=== PATIENT | female | born 1930 | race Caucasian/White ===

== ENCOUNTER 2018-04-16 10:12 | Day surgery (SDC) | payer MEDICARE ==
[~2018-04-16 10:12] MED LIST: CHONDR SU A NA/HYALUR INTRAOC KIT (SURGICARE) ONE; EPINEPHRINE INJ/PF 1 MG/1 ML AMPULE ONE; KETOROLAC TROMETHAMINE 0.45% 4 DROP/0.4 ML DROPERETTE OS PRN; LIDOCAINE 1% INJ-PF (10 MG/ML) 30 ML SDV ONE; TOBRAMYCIN SULFATE/DEXAMETH OPH OINTMENT 3.5 GM ONE
[2018-04-16] MEDS: TETRACAINE HCL 0.5% OPH SOLN 0.6 ML DROPERETTE OS PRN ×3 (11:21→11:47)
[2018-04-16] MEDS: CYCLOPENTOLATE 0.2%/PHENYLEPHRINE 1% OPH SOLN 2 ML OS PRN ×3 (11:22→11:41)
[2018-04-16] MEDS: TROPICAMIDE 1% OPH SOLN 3 ML OS PRN ×3 (11:22→11:41)
[2018-04-16] MEDS: BESIFLOXACIN HCL 0.6% OPH SUSP 5 ML BOTTLE OS PRN ×3 (11:22→12:11)
[2018-04-16] MEDS ORDERED: MIDAZOLAM 2 MG/2 ML INJ ONE (11:28)
[2018-04-16] MEDS ORDERED: LIDOCAINE 1%/PHENYLEPHRINE 1.5% 1 ML VIAL ONE (11:28)
[2018-04-16] MEDS ORDERED: FENTANYL CITRATE INJ/PF 100 MCG/2 ML AMPUL ONE (11:29)
== END 2018-04-16 13:37 | disposition home or self-care (01) ==
LOC: SC 10:12
PROVIDERS: ATTEND Ophthalmology
DX: H25.12 Age-related nuclear cataract, left eye (principal); E03.9 Hypothyroidism, unspecified; M19.90 Unspecified osteoarthritis, unspecified site; Z96.651 Presence of right artificial knee joint; Z79.899 Other long term (current) drug therapy; Z88.2 Allergy status to sulfonamides; Z88.5 Allergy status to narcotic agent
CPT/HCPCS: 66984; V2630; J2250; J3490 ×2; A9270; J0171; J3010; J2370; 142

== ENCOUNTER 2018-04-30 07:53 | Day surgery (SDC) | payer MEDICARE ==
[~2018-04-30 07:53] MED LIST changes: +KETOROLAC TROMETHAMINE 0.45% 4 DROP/0.4 ML DROPERETTE OD PRN; -KETOROLAC TROMETHAMINE 0.45% 4 DROP/0.4 ML DROPERETTE OS PRN; +MIDAZOLAM 2 MG/2 ML INJ ONE
[2018-04-30] MEDS: TROPICAMIDE 1% OPH SOLN 3 ML OD PRN ×3 (08:30→08:50)
[2018-04-30] MEDS: CYCLOPENTOLATE 0.2%/PHENYLEPHRINE 1% OPH SOLN 2 ML OD PRN ×3 (08:30→08:50)
[2018-04-30] MEDS: BESIFLOXACIN HCL 0.6% OPH SUSP 5 ML BOTTLE OD PRN ×3 (08:31→09:22)
[2018-04-30] MEDS: TETRACAINE HCL 0.5% OPH SOLN 0.6 ML DROPERETTE OD PRN ×3 (08:32→09:02)
== END 2018-04-30 10:30 | disposition home or self-care (01) ==
LOC: SC 07:53
PROVIDERS: ATTEND Ophthalmology
DX: H25.11 Age-related nuclear cataract, right eye (principal); Z98.42 Cataract extraction status, left eye; E03.9 Hypothyroidism, unspecified; M19.90 Unspecified osteoarthritis, unspecified site; Z79.899 Other long term (current) drug therapy; Z88.2 Allergy status to sulfonamides; Z88.5 Allergy status to narcotic agent
CPT/HCPCS: 66984; V2630; J2250; J3490 ×3; A9270; J0171; 142

== ENCOUNTER 2019-04-23 15:11 | Inpatient (IN) | payer MEDICARE ==
--- NOTE | 2019-04-23 15:41 | ER Document Report ---
ED General - General Chief Complaint: Fall Injury Stated Complaint: FALL/RIGHT KNEE PAIN Time Seen by Provider: 04/23/19 15:26 Mode of Arrival: Ambulatory Information source: Patient, Emergency Med Personnel, [facility] Records Notes: 89-year-old female with hypothyroidism, vertigo, acid reflux presents after a slip and fall that occurred at home just prior to arrival. Patient reports that she was being transferred from her walker to the chair when she fell landing on her right hip and injuring her right knee. Patient denies loss of consciousness but does admit to hitting her head. She denies being on any blood thinning medications. She denies any preceding chest pain, shortness of breath, palpitations or dizziness. TRAVEL OUTSIDE OF THE [place] IN LAST 30 DAYS: No - HPI Onset: Just prior to arrival Onset/Duration: Sudden Quality of pain: Throbbing Severity: Moderate Associated symptoms: Leg swelling. denies: Chest pain, Earache, Fever, Headache, Nausea, Vomiting, Shortness of breath Exacerbated by: Movement Relieved by: Remaining still Similar symptoms previously: No Recently seen / treated by doctor: No - Related Data Allergies/Adverse Reactions: codeine Allergy (Intermediate, Verified 04/30/18 08:55) ITCHING Sulfa (Sulfonamide Antibiotics) Allergy (Intermediate, Verified 04/30/18 08:55) ITCHING Past Medical History - General Information source: Patient, Relative, Emergency Med Personnel, [facility] Records - Social History Smoking Status: Never Smoker Frequency of alcohol use: None Drug Abuse: None Lives with: Family, Spouse/Significant other Family History: Reviewed & Not Pertinent Patient has suicidal ideation: No Patient has homicidal ideation: No - Past Medical History Cardiac Medical History: Denies: Hx Heart Attack, Hx Hypertension Pulmonary Medical History: Denies: Hx Asthma Neurological Medical History: Denies: Hx Cerebrovascular Accident, Hx Seizures GI Medical History: Denies: Hx Hepatitis, Hx Hiatal Hernia, Hx Ulcer Infectious Medical History: Denies: Hx Hepatitis Past Surgical History: Denies: Hx Mastectomy, Hx Open Heart Surgery, Hx Pacemaker Review of Systems - Review of Systems Notes: REVIEW OF SYSTEMS: CONSTITUTIONAL : Denies fever, chills, or sweats. Denies recent illness. Denies weight loss, recent hospitalizations. EENT: Denies visual changes, eye pain. Denies sore throat, oral lesions, difficulty swallowing. CARDIOVASCULAR: Denies chest pain. Denies palpitations. Denies lower extremity edema. RESPIRATORY: Denies cough. Denies shortness of breath, wheezing. GASTROINTESTINAL: Denies abdominal pain or distention. Denies nausea, vomiting, or diarrhea. Denies blood in vomitus, stools, or per rectum. Denies black, tarry stools. Denies constipation. GENITOURINARY: Denies difficulty urinating, painful urination, frequency, blood in urine, or vaginal discharge. MUSCULOSKELETAL: Denies back or neck pain or stiffness. SKIN: Denies rash, lesions or sores. HEMATOLOGIC : Denies easy bruising or bleeding. LYMPHATIC: Denies swollen glands. NEUROLOGICAL: Denies confusion or altered mental status. Denies loss of cons ciousness. Denies dizziness or lightheadedness. Denies headache. Denies weakness or paralysis. Denies problems difficulty with ambulation, slurred speech. Denies sensory loss, numbness, or tingling. Denies seizures. PSYCHIATRIC: Denies anxiety or stress. Denies depression, suicidal ideation, or homicidal ideation. Denies visual or auditory hallucinations. Physical Exam - Vital signs Vitals: Temp Pulse Resp BP Pulse Ox 97.8 F 62 16 164/69 H 94 04/23/19 15:22 04/23/19 15:22 04/23/19 15:22 04/23/19 15:22 04/23/19 15:22 - Notes Notes: PHYSICAL EXAMINATION: GENERAL: Well-appearing, well-nourished and in no acute distress. GCS 15 HEAD: Atraumatic, normocephalic. EYES: Pupils equal round and reactive to light, extraocular movements intact, sclera anicteric, conjunctiva are normal. ENT: Nares patent, oropharynx clear without exudates. Moist mucous membranes. No hemanotympanum . No blood in nares. No dental fracture NECK: Normal range of motion, supple without lymphadenopathy. Trachea midline LUNGS: Breath sounds clear to auscultation bilaterally and equal. No wheezes rales or rhonchi. HEART: Regular rate and rhythm without murmurs. Pulses intact all throughout. ABDOMEN: Soft, nontender, nondistended abdomen. No guarding, no rebound. No masses appreciated. Musculoskeletal: Normal range of motion of the upper extremities and left lower extremity. Right lower extremity internally rotated. Right knee swelling. DP, PT pulse intact. No pitting or edema. No cyanosis. NEUROLOGICAL: Cranial nerves grossly intact. Normal speech, normal gait. Normal sensory, motor, and reflex exams. PSYCH: Normal mood, normal affect. SKIN: Warm, No active bleeding U/S fast exam notes no obvious free fluid but this is a nondiagnostic evaluation Course - Re-evaluation Re-evalutation: Chest X-Ray 04/23/19 00:00 IMPRESSION: No definite acute cardiopulmonary process. Cervical Spine CT 04/23/19 15:32 IMPRESSION: CHRONIC DEGENERATIVE CHANGES. NO ACUTE FINDINGS. Femur X-Ray 04/23/19 15:32 IMPRESSION: Distal femoral fracture. Head CT 04/23/19 15:32 IMPRESSION: MILD CHRONIC CHANGES OF ATROPHY AND MICROVASCULAR ISCHEMIA. NO ACUTE PROCESS. EVIDENCE OF ACUTE STROKE: NO. Pelvis X-Ray 04/23/19 15:32 IMPRESSION: NEGATIVE STUDY OF THE PELVIS. Tibia/Fibula X-Ray 04/23/19 15:32 IMPRESSION: NEGATIVE STUDY OF THE RIGHT TIBIA AND FIBULA. NO RADIOGRAPHIC EVIDENCE OF ACUTE INJURY. Temp Pulse Resp BP Pulse Ox 97.8 F 62 16 164/69 H 94 04/23/19 15:22 04/23/19 15:22 04/23/19 15:22 04/23/19 15:22 04/23/19 15:22 Laboratory 04/23/19 04/23/19 04/23/19 17:22 17:22 17:22 WBC 11.8 H RBC 4.50 Hgb 12.5 Hct 38.1 MCV 85 MCH 27.9 MCHC 32.9 RDW 13.9 Plt Count 173 Total Counted 100 Seg Neutrophils % Not Reportable Seg Neuts % (Manual) 87 H Band Neutrophils % 5 Lymphocytes % Not Reportable Lymphocytes % (Manual) 6 L Monocytes % Not Reportable Monocytes % (Manual) 1 L Eosinophils % Not Reportable Eosinophils % (Manual) 1 Basophils % Not Reportable Basophils % (Manual) 0 Absolute Neutrophils Not Reportable Abs Neuts (Manual) 10.9 H Absolute Lymphocytes Not Reportable Abs Lymphs (Manual) 0.7 Absolute Monocytes Not Reportable Abs Monocytes (Manual) 0.1 Absolute Eosinophils Not Reportable Absolute Eos (Manual) 0.1 Absolute Basophils Not Reportable Abs Basophils (Manual) 0.0 Platelet Comment ADEQUATE Ovalocytes SLIGHT Stomatocytes SLIGHT PT 13.2 INR 1.00 APTT 27.9 Sodium 141.4 Potassium 5.1 H Chloride 108 H Carbon Dioxide 28 Anion Gap 5 BUN 32 H Creatinine 1.02 Est GFR ( Amer) > 60 Est GFR (Non-Af Amer) 51 L Glucose 125 H Calcium 9.4 Total Bilirubin 0.4 Direct Bilirubin 0.3 Neonat Total Bilirubin Not Reportable Neonat Direct Bilirubin Not Reportable Neonat Indirect Bili Not Reportable AST 29 ALT 26 Alkaline Phosphatase 73 Creatine Kinase CK-MB (CK-2) Troponin I Total Protein 6.3 Albumin 3.8 Blood Type Antibody Screen 04/23/19 04/23/19 04/23/19 17:22 17:22 17:22 WBC RBC Hgb Hct MCV MCH MCHC RDW Plt Count Total Counted Seg Neutrophils % Seg Neuts % (Manual) Band Neutrophils % Lymphocytes % Lymphocytes % (Manual) Monocytes % Monocytes % (Manual) Eosinophils % Eosinophils % (Manual) Basophils % Basophils % (Manual) Absolute Neutrophils Abs Neuts (Manual) Absolute Lymphocytes Abs Lymphs (Manual) Absolute Monocytes Abs Monocytes (Manual) Absolute Eosinophils Absolute Eos (Manual) Absolute Basophils Abs Basophils (Manual) Platelet Comment Ovalocytes Stomatocytes PT INR APTT Sodium Potassium Chloride Carbon Dioxide Anion Gap BUN Creatinine Est GFR ( Amer) Est GFR (Non-Af Amer) Glucose Calcium Total Bilirubin Direct Bilirubin Neonat Total Bilirubin Neonat Direct Bilirubin Neonat Indirect Bili AST ALT Alkaline Phosphatase Creatine Kinase 84 CK-MB (CK-2) Troponin I < 0.012 Total Protein Albumin Blood Type O POSITIVE Antibody Screen NEGATIVE 04/23/19 17:22 WBC RBC Hgb Hct MCV MCH MCHC RDW Plt Count Total Counted Seg Neutrophils % Seg Neuts % (Manual) Band Neutrophils % Lymphocytes % Lymphocytes % (Manual) Monocytes % Monocytes % (Manual) Eosinophils % Eosinophils % (Manual) Basophils % Basophils % (Manual) Absolute Neutrophils Abs Neuts (Manual) Absolute Lymphocytes Abs Lymphs (Manual) Absolute Monocytes Abs Monocytes (Manual) Absolute Eosinophils Absolute Eos (Manual) Absolute Basophils Abs Basophils (Manual) Platelet Comment Ovalocytes Stomatocytes PT INR APTT Sodium Potassium Chloride Carbon Dioxide Anion Gap BUN Creatinine Est GFR ( Amer) Est GFR (Non-Af Amer) Glucose Calcium Total Bilirubin Direct Bilirubin Neonat Total Bilirubin Neonat Direct Bilirubin Neonat Indirect Bili AST ALT Alkaline Phosphatase Creatine Kinase CK-MB (CK-2) 1.51 Troponin I Cancelled Total Protein Albumin Blood Type Antibody Screen 04/23/19 15:41 89-year-old female presents after a fall at home which caused her to land on her right hip. This fall occurred during transfer from her walker to the chair. Patient denies any preceding chest pain, dizziness, shortness of breath. States that her was attempting to help her. She does use a walker constantly at baseline. Exam is significant for internal rotation of the right lower extremity associated right knee swelling and ecchymosis and pain with palpation to the right trochanter. 04/23/19 17:00 Dr. Francisco consulted for distal femur fracture. Family at bedside and aware of patient's fracture. Patient resting comfortably. Dr. Francisco requesting repeat films centered more on fracture area. Due to the patient's extreme discomfort, and ability to move independently and her injury a CT of the femur was obtained. 04/23/19 20:48 Dr. Zheng contacted for admission to the hospital. Patient has been accepted by the hospitalist for admission. Dr. Francisco to see the patient in the morning. Family at bedside and agreeable with admission. - Vital Signs Vital signs: Temp Pulse Resp BP Pulse Ox 97.9 F 80 14 124/56 L 96 04/23/19 18:44 04/23/19 20:46 04/23/19 20:46 04/23/19 20:46 04/23/19 20:46 - Laboratory Result Diagrams: 04/23/19 17:22 04/23/19 17:22 Laboratory results interpreted by me: 04/23/19 04/23/19 17:22 17:22 WBC 11.8 H Seg Neuts % (Manual) 87 H Lymphocytes % (Manual) 6 L Monocytes % (Manual) 1 L Abs Neuts (Manual) 10.9 H Potassium 5.1 H Chloride 108 H BUN 32 H Est GFR (Non-Af Amer) 51 L Glucose 125 H - Diagnostic Test Radiology reviewed: Image reviewed, Reports reviewed - EKG Interpretation by Me Rate: Normal - Q waves in leads III and aVF, V1 and V2 Rhythm: Other Discharge - Discharge Clinical Impression: Closed fracture of right distal femur Qualifiers: Encounter type: initial encounter Fracture morphology: unspecified fracture morphology Qualified Code(s): S72.401A - Unspecified fracture of lower end of right femur, initial encounter for closed fracture Hypothyroidism Qualifiers: Hypothyroidism type: unspecified Qualified Code(s): E03.9 - Hypothyroidism, unspecified Fall Qualifiers: Encounter type: initial encounter Qualified Code(s): W19.XXXA - Unspecified fall, initial encounter Condition: Good Disposition: ADMITTED INPATIENT Admitting Provider: Marce (Hospitalist) Unit Admitted: [facility]
[2019-04-23] MEDS ORDERED: FENTANYL CITRATE INJ/PF 100 MCG/2 ML AMPUL IV ONE (15:56)
--- NOTE | 2019-04-23 16:32 | RADIOLOGY REPORT (SQ) ---
EXAM DESCRIPTION: CT HEAD WITHOUT COMPLETED DATE/TIME: 04/23/2019 4:22 pm REASON FOR STUDY: fall COMPARISON: None. TECHNIQUE: Axial images acquired through the brain without intravenous contrast. Images reviewed wi th bone, brain and subdural windows. Additional sagittal and coronal reconstructions were generated. Images stored on PACS. All CT scanners at this facility use dose modulation, iterative reconstruction, and/or weight based d osing when appropriate to reduce radiation dose to as low as reasonably achievable (ALARA). [facility]: Dose Right [facility]: CareDose [facility]: Dose Right [facility]: Teradose 4D [facility]: [employer] RADIATION DOSE: CT Rad equipment meets quality standard of care and radiation dose reduction techniq ues were employed. CTDIvol: 23.1 - 53.2 mGy. DLP: 1503 mGy-cm. mGy. LIMITATIONS: None. FINDINGS: VENTRICLES: Prominent. CEREBRUM: No masses. No hemorrhage. No midline shift. Areas of low density in the white matter mos t likely due to chronic micro-vascular ischemic change. No evidence for acute infarction. CEREBELLUM: No masses. No hemorrhage. No alteration of density. No evidence for acute infarction. EXTRAAXIAL SPACES: Mild age-related involutional change. No fluid collections. No masses. ORBITS AND GLOBE: No intra- or extraconal masses. Normal contour of globe without masses. CALVARIUM: No fracture. PARANASAL SINUSES: No fluid or mucosal thickening. SOFT TISSUES: No mass or hematoma. OTHER: No other significant finding. IMPRESSION: MILD CHRONIC CHANGES OF ATROPHY AND MICROVASCULAR ISCHEMIA. NO ACUTE PROCESS. EVIDENCE OF ACUTE STROKE: NO. TECHNICAL DOCUMENTATION: JOB ID: [id number] Quality ID # [id number]: Final reports with documentation of one or more dose reduction techniques (e.g., Au tomated exposure control, adjustment of the mA and/or kV according to patient size, use of iterative reconstruction technique) 2010 [employer]- All Rights Reserved Reading location - IP/workstation name: [email or web address]
--- NOTE | 2019-04-23 16:34 | RADIOLOGY REPORT (SQ) ---
EXAM DESCRIPTION: CT CERVICAL SPINE WITHOUT COMPLETED DATE/TIME: 04/23/2019 4:22 pm REASON FOR STUDY: fall COMPARISON: None. TECHNIQUE: Axial images acquired through the cervical spine without intravenous contrast. Images re viewed with lung, soft tissue and bone windows. Reconstructed coronal and sagittal MPR images review ed. Images stored on PACS. All CT scanners at this facility use dose modulation, iterative reconstruction, and/or weight based d osing when appropriate to reduce radiation dose to as low as reasonably achievable (ALARA). [facility]: Dose Right [facility]: CareDose [facility]: Dose Right [facility]: Teradose 4D [facility]: [employer] RADIATION DOSE: CT Rad equipment meets quality standard of care and radiation dose reduction techniq ues were employed. CTDIvol: 16.7 mGy. DLP: 263 mGy-cm. mGy. LIMITATIONS: None. FINDINGS: ALIGNMENT: Anatomic. MINERALIZATION: Normal. VERTEBRAL BODIES: No fractures or dislocation. DISCS: Multilevel disc space narrowing with osteophytes. FACETS, LATERAL MASSES, POSTERIOR ELEMENTS: Facet arthropathy. No fractures. No dislocation. No ac fabian findings. HARDWARE: None in the spine. VISUALIZED RIBS: No fractures. LUNG APICES AND SOFT TISSUES: No significant or acute findings. OTHER: No other significant finding. IMPRESSION: CHRONIC DEGENERATIVE CHANGES. NO ACUTE FINDINGS. TECHNICAL DOCUMENTATION: JOB ID: [id number] Quality ID # [id number]: Final reports with documentation of one or more dose reduction techniques (e.g., Au tomated exposure control, adjustment of the mA and/or kV according to patient size, use of iterative reconstruction technique) 2010 [employer]- All Rights Reserved Reading location - IP/workstation name: [email or web address]
--- NOTE | 2019-04-23 16:50 | RADIOLOGY REPORT (SQ) ---
EXAM DESCRIPTION: PELVIS AP COMPLETED DATE/TIME: 04/23/2019 4:41 pm REASON FOR STUDY: fall COMPARISON: None. NUMBER OF VIEWS: One view TECHNIQUE: AP Pelvis LIMITATIONS: None. FINDINGS: MINERALIZATION: Normal. HIPS: No acute fracture or dislocation. No worrisome bone lesions. PELVIS AND SACRUM: No acute fracture or dislocation. No worrisome bone lesions. PUBIS AND ISCHIUM: No acute fracture. LOWER LUMBAR SPINE: No significant findings as visualized. SOFT TISSUES: No findings. OTHER: No other significant finding. IMPRESSION: NEGATIVE STUDY OF THE PELVIS. COMMENT: Pelvic fractures are often occult on plain radiographs. If strong clinical suspicion for f racture, recommend CT or MR. TECHNICAL DOCUMENTATION: JOB ID: [id number] [employer]- All Rights Reserved Reading location - IP/workstation name: [email or web address]
--- NOTE | 2019-04-23 16:51 | RADIOLOGY REPORT (SQ) ---
EXAM DESCRIPTION: CHEST SINGLE VIEW COMPLETED DATE/TIME: 04/23/2019 4:41 pm REASON FOR STUDY: PRE-OP COMPARISON: None. EXAM PARAMETERS: NUMBER OF VIEWS: One view. TECHNIQUE: Single frontal radiographic view of the chest acquired. RADIATION DOSE: NA LIMITATIONS: Patient rotation. FINDINGS: LUNGS AND PLEURA: No opacities, masses or pneumothorax. No pleural effusion. MEDIASTINUM AND HILAR STRUCTURES: No discrete masses. Widened superiorly, likely related to patient rotation. Likely calcified mediastinal and hilar nodes. HEART AND VASCULAR STRUCTURES: Borderline enlarged cardiac silhouette. Unfolded atherosclerotic thor acic aorta. BONES: No acute findings. Thoracolumbar spondylosis. Bone anchors in the left humerus. HARDWARE: None in the chest. OTHER: No other significant finding. IMPRESSION: No definite acute cardiopulmonary process. TECHNICAL DOCUMENTATION: JOB ID: [id number] [employer]- All Rights Reserved Reading location - IP/workstation name: [email or web address]
--- NOTE | 2019-04-23 16:51 | RADIOLOGY REPORT (SQ) ---
EXAM DESCRIPTION: TIBIA FIBULA RIGHT COMPLETED DATE/TIME: 04/23/2019 4:41 pm REASON FOR STUDY: fall COMPARISON: None. NUMBER OF VIEWS: Two views. TECHNIQUE: Two radiographic images acquired of the right tibia and fibula to include the knee and an kle in at least one projection. LIMITATIONS: None. FINDINGS: MINERALIZATION: Normal. BONES: No acute fracture or dislocation. No worrisome bone lesions. SOFT TISSUES: No obvious swelling or foreign body. OTHER: No other significant finding. IMPRESSION: NEGATIVE STUDY OF THE RIGHT TIBIA AND FIBULA. NO RADIOGRAPHIC EVIDENCE OF ACUTE INJURY. TECHNICAL DOCUMENTATION: JOB ID: [id number] [employer]- All Rights Reserved Reading location - IP/workstation name: [email or web address]
--- NOTE | 2019-04-23 16:54 | RADIOLOGY REPORT (SQ) ---
EXAM DESCRIPTION: FEMUR RIGHT COMPLETED DATE/TIME: 04/23/2019 4:41 pm REASON FOR STUDY: fall COMPARISON: None. NUMBER OF VIEWS: Two views. TECHNIQUE: Two radiographic images acquired of the right femur to include hip and knee in at least o ne projection. LIMITATIONS: None. FINDINGS: MINERALIZATION: Normal. BONES: There is no oblique fracture of the distal femur. SOFT TISSUES: No obvious swelling or foreign body. OTHER: No other significant finding. IMPRESSION: Distal femoral fracture. TECHNICAL DOCUMENTATION: JOB ID: [id number] [employer]- All Rights Reserved Reading location - IP/workstation name: [email or web address]
[2019-04-23 17:41] LABS: PARTIAL THROMBOPLASTIN TIME 27.9 SEC (23.5-35.8); PROTHROMBIN TIME 13.2 SEC (11.4-15.4)
[2019-04-23 17:46] LABS: HEMATOCRIT 38.1 % (36.0-47.0); HEMOGLOBIN 12.5 g/dL (12.0-15.5); MEAN CORPUSCULAR HEMOGLOBIN 27.9 pg (27.0-33.4); MEAN CORPUSCULAR HGB CONC 32.9 g/dL (32.0-36.0); MEAN CORPUSCULAR VOLUME 85 fl (80-97); PLATELET COUNT 173 10^3/uL (150-450); RED CELL DISTRIBUTION WIDTH 13.9 % (11.5-14.0); WHITE BLOOD COUNT 11.8 10^3/uL (4.0-10.5)
[2019-04-23 17:54] LABS: ALANINE AMINOTRANSFERASE 26 U/L (9-52); ALBUMIN 3.8 g/dL (3.5-5.0); ALKALINE PHOSPHATASE 73 U/L (38-126); ANION GAP 5 (5-19); ASPARTATE AMINO TRANSFERASE 29 U/L (14-36); BILIRUBIN,DIRECT 0.3 mg/dL (0.0-0.4); BILIRUBIN,TOTAL 0.4 mg/dL (0.2-1.3); BLOOD UREA NITROGEN 32 mg/dL (7-20); CALCIUM 9.4 mg/dL (8.4-10.2); CARBON DIOXIDE 28 mmol/L (22-30); CHLORIDE 108 mmol/L (98-107); GLUCOSE 125 mg/dL (75-110); POTASSIUM 5.1 mmol/L (3.6-5.0); TOTAL PROTEIN 6.3 g/dL (6.3-8.2)
[2019-04-23] MEDS ORDERED: ONDANSETRON HCL INJ/PF 4 MG/2 ML SDV IV PRN (18:06)
[2019-04-23] MEDS ORDERED: MORPHINE SULFATE 10 MG/ML INJ IV PRN (18:11)
[2019-04-23 18:15] LABS: ABSOLUTE LYMPHOCYTES# (MANUAL) 0.7 10^3/uL (0.5-4.7); ABSOLUTE MONOCYTES # (MANUAL) 0.1 10^3/uL (0.1-1.4); BAND NEUTROPHILS % (MANUAL) 5 % (3-5); BASOPHILS % (MANUAL) 0 % (0-2); EOSINOPHILS % (MANUAL) 1 % (0-6); LYMPHOCYTES % (MANUAL) 6 % (13-45); MONOCYTES % (MANUAL) 1 % (3-13); PLATELET COMMENT ADEQUATE; SEGMENTED NEUTROPHILS % (MAN) 87 % (42-78); TOTAL CELLS COUNTED 100
[2019-04-23 18:16] LABS: OVALOCYTES SLIGHT; STOMATOCYTES SLIGHT
--- NOTE | 2019-04-23 18:19 | RADIOLOGY REPORT (SQ) ---
EXAM DESCRIPTION: CT LT LOWER EXTREMITY WITHOUT COMPLETED DATE/TIME: 04/23/2019 6:09 pm REASON FOR STUDY: distal femor fracture COMPARISON: Left femur TECHNIQUE: Axial imaging performed through the left femur with reformatted coronal and sagittal imag ing windowed for bone and soft tissues. Images saved to PACS. 3D IMAGING: Were 3D images as MIP, SSD, or volume rendering performed at the work station? No All CT scanners at this facility use dose modulation, iterative reconstruction, and/or weight based d osing when appropriate to reduce radiation dose to as low as reasonably achievable (ALARA). [facility]: Dose Right [facility]: CareDose [facility]: Dose Right [facility]: Teradose 4D [facility]: [employer] LIMITATIONS: None. RADIATION DOSE: CT Rad equipment meets quality standard of care and radiation dose reduction techniq ues were employed. CTDIvol: 5.8 mGy. DLP: 282 mGy-cm. mGy. FINDINGS: SOFT TISSUES: No obvious swelling or foreign body. BONES: Spiral fracture of the mid to distal femur with distraction and overlap. There is an addition al isolated fracture of the anterior distal femoral cortex superior to the prosthesis. MINERALIZATION: Normal. OTHER: No other significant finding. IMPRESSION: Spiral fracture of the femur with distraction and overlap. Isolated nondisplaced anteri or distal femoral cortical fracture superior to the prosthesis. TECHNICAL DOCUMENTATION: JOB ID: [id number] Quality ID # [id number]: Final reports with documentation of one or more dose reduction techniques (e.g., Au tomated exposure control, adjustment of the mA and/or kV according to patient size, use of iterative reconstruction technique) 2010 [employer]- All Rights Reserved Reading location - IP/workstation name: [email or web address]
--- NOTE | 2019-04-23 18:23 | PDOC H&P ---
History of Present Illness Admission Date/PCP: ANA FRIEDMAN NP Patient complains of: Fall with right femur fracture History of Present Illness: MICHAEL ROY is a 89 year old female female with history of hypothyroidism, mild chronic kidney disease, vertigo came to the emergency room after a fall at home. It was accidental fall. The work-up shows right femoral fracture. Dr. Mckayla Reece spoke to the orthopedist and Dr. Francisco and he agreed to see the patient first thing in the morning. Spoke to the patient's for at least half an hour he wants everything to be done and he wants her to be full code. Past Medical History Cardiac Medical History: Denies: Myocardial Infarction, Hypertension Pulmonary Medical History: Denies: Asthma Neurological Medical History: Denies: Seizures GI Medical History: Denies: Hepatitis, Hiatal Hernia Hematology: Reports: Anemia - IRON INFUSIONS/D/C'D Denies: Sickle Cell Disease Past Surgical History Past Surgical History: Reports: Knee Replacement, Orthopedic Surgery Denies: Amputation, Mastectomy, Pacemaker Social History Lives with: Family, Spouse/Significant other Smoking Status: Never Smoker Frequency of Alcohol Use: None Hx Recreational Drug Use: No Hx Prescription Drug Abuse: No - Advance Directive Resuscitation Status: Full Code Family History Family History: Reviewed & Not Pertinent Parental Family History Reviewed: Yes - Family history of hypertension Children Family History Reviewed: Yes Sibling(s) Family History Reviewed.: Yes Medication/Allergy Home Medications: Gabapentin 100 mg PO BID 04/09/18 Levothyroxine Sodium [Synthroid 0.075 mg Tablet] 0.075 mg PO DAILY 04/09/18 Fesoterodine Fumarate [Toviaz] PO DAILY 04/23/19 Linaclotide [Linzess] PO DAILY 04/23/19 Allergies/Adverse Reactions: codeine Allergy (Intermediate, Verified 04/30/18 08:55) ITCHING Sulfa (Sulfonamide Antibiotics) Allergy (Intermediate, Verified 04/30/18 08:55) ITCHING Review of Systems Constitutional: ABSENT: fatigue, fever(s), headache(s), night sweats, weakness Ears: ABSENT: hearing changes Nose, Mouth, and Throat: ABSENT: sore throat Cardiovascular: ABSENT: edema, orthropnea, palpitations Gastrointestinal: ABSENT: abdominal pain, bloating, diarrhea, dysphagia, heartburn, melena, nausea Musculoskeletal: PRESENT: other - c/o of pain in the right upper leg. Neurological: ABSENT: abnormal gait, abnormal speech, confusion, dizziness, focal weakness, syncope Psychiatric: ABSENT: anxiety, depression, homidical ideation, suicidal ideation Physical Exam Vital Signs: Temp Pulse Resp BP Pulse Ox 97.8 F 62 16 164/69 H 94 04/23/19 15:22 04/23/19 15:22 04/23/19 15:22 04/23/19 15:22 04/23/19 15:22 Intake & Output 04/22/19 04/23/19 04/24/19 06:59 06:59 06:59 Weight 63 kg General appearance: PRESENT: cooperative, other - Patient is in moderate distress. Head exam: PRESENT: atraumatic Eye exam: PRESENT: PERRLA Mouth exam: PRESENT: moist, tongue midline Teeth exam: PRESENT: poor dentation Neck exam: ABSENT: carotid bruit, JVD, lymphadenopathy, thyromegaly Respiratory exam: PRESENT: clear to auscultation terrence. ABSENT: rales, rhonchi, wheezes Cardiovascular exam: PRESENT: RRR. ABSENT: diastolic murmur, rubs, systolic mur mur GI/Abdominal exam: PRESENT: normal bowel sounds, soft. ABSENT: distended, guarding, mass, organolmegaly, rebound, tenderness Rectal exam: PRESENT: deferred Extremities exam: PRESENT: other - Right leg was shortened compared to the left leg. Neurological exam: PRESENT: alert, awake, oriented to person, oriented to place, oriented to time, oriented to situation, CN II-XII grossly intact. ABSENT: motor sensory deficit Psychiatric exam: PRESENT: appropriate affect, normal mood. ABSENT: homicidal ideation, suicidal ideation Results Laboratory Results: 04/23/19 17:22 04/23/19 17:22 04/23/19 04/23/19 17:22 17:22 WBC 11.8 H RBC 4.50 Hgb 12.5 Hct 38.1 MCV 85 MCH 27.9 MCHC 32.9 RDW 13.9 Plt Count 173 Seg Neutrophils % Not Reportable Lymphocytes % Not Reportable Monocytes % Not Reportable Eosinophils % Not Reportable Basophils % Not Reportable Absolute Neutrophils Not Reportable Absolute Lymphocytes Not Reportable Absolute Monocytes Not Reportable Absolute Eosinophils Not Reportable Absolute Basophils Not Reportable Sodium 141.4 Potassium 5.1 H Chloride 108 H Carbon Dioxide 28 Anion Gap 5 BUN 32 H Creatinine 1.02 Est GFR ( Amer) > 60 Est GFR (Non-Af Amer) 51 L Glucose 125 H Calcium 9.4 Total Bilirubin 0.4 AST 29 ALT 26 Alkaline Phosphatase 73 Total Protein 6.3 Albumin 3.8 04/23/19 17:22 Troponin I < 0.012 Impressions: Chest X-Ray 04/23/19 00:00 IMPRESSION: No definite acute cardiopulmonary process. Cervical Spine CT 04/23/19 15:32 IMPRESSION: CHRONIC DEGENERATIVE CHANGES. NO ACUTE FINDINGS. Femur X-Ray 04/23/19 15:32 IMPRESSION: Distal femoral fracture. Head CT 04/23/19 15:32 IMPRESSION: MILD CHRONIC CHANGES OF ATROPHY AND MICROVASCULAR ISCHEMIA. NO ACUTE PROCESS. EVIDENCE OF ACUTE STROKE: NO. Pelvis X-Ray 04/23/19 15:32 IMPRESSION: NEGATIVE STUDY OF THE PELVIS. Tibia/Fibula X-Ray 04/23/19 15:32 IMPRESSION: NEGATIVE STUDY OF THE RIGHT TIBIA AND FIBULA. NO RADIOGRAPHIC EVIDENCE OF ACUTE INJURY. Assessment and Plan - Diagnosis (1) Closed fracture of right distal femur Is this a current diagnosis for this admission?: Yes Plan: [birth year]/[id number]-ncpa-old female came to the emergency room with history of fall. Found to have a right distal femoral fracture. Orthopedics was consulted by the ER and Dr. Francisco is going to see the patient tomorrow. Plan is going to be appears to put her in IMCU. As inpatient. Keep her n.p.o. from midnight. Started on IV fluids normal saline at 75 cc/h. Aspiration fall seizure precautions are requested. Ca's catheter was placed. OT consult PT consult psychiatric social worker consult was requested for placement. No Lovenox was initiated because of the possible surgery early in the morning. GI prophylaxis was initiated. Patient is going to be full code. EKG was nonspecific findings. Hemoglobin and renal function is normal. Patient because of the age moderate to high risk for surgery in my opinion. (2) Hypothyroidism Is this a current diagnosis for this admission?: No Plan: 04/23/2019-patient has history of hypothyroidism going to check the TSH levels and hold levothyroxine for now once the surgery was done we are going to restart p.o. medications after cleared by the orthopedic since. - Time Time Spent with patient: 25-34 minutes Medications reviewed and adjusted accordingly: Yes Anticipated discharge: SNF
[2019-04-23 19:41] LABS: APPEARANCE,URINE CLOUDY; BILIRUBIN,URINE NEGATIVE (NEGATIVE); GLUCOSE, URINE NEGATIVE (NEGATIVE); KETONES,URINE TRACE mg/dL (NEGATIVE); LEUKOCYTE ESTERASE,URINE TRACE (NEGATIVE); NITRITE,URINE POSITIVE (NEGATIVE); PROTEIN,URINE NEGATIVE (NEGATIVE); URINE SPECIFIC GRAVITY 1.021; UROBILINOGEN,URINE NEGATIVE mg/dL (<2.0)
[2019-04-23 19:42] LABS: COLOR,URINE YELLOW
[2019-04-23] MEDS: NORMAL SALINE 1000 ML 1,000 ML IV PRN (20:13)
[2019-04-23] MEDS: ACETAMINOPHEN 325 MG TABLET PO PRN (20:15)
--- NOTE | 2019-04-23 20:33 | EKG REPORT ---
SEVERITY:- ABNORMAL ECG - UNKNOWN RHYTHM, IRREGULAR RATE 52-77 PROBABLE INFERIOR INFARCT, AGE INDETERMINATE CONSIDER ANTEROSEPTAL INFARCT : Confirmed by: Castro Marsh 23-Apr-2019 20:32:06
[2019-04-23] MEDS: MORPHINE SULFATE 10 MG/ML INJ IV PRN (20:50)
[2019-04-23] MEDS: PANTOPRAZOLE SODIUM 40 MG VIAL IV SCH (22:16)
[2019-04-24 00:54] LABS: CREATINE KINASE MB 3.41 ng/mL (<4.55)
[2019-04-24 00:57] LABS: TROPONIN I < 0.012 ng/mL
[2019-04-24] MEDS: MORPHINE SULFATE 10 MG/ML INJ IV PRN ×2 (03:29→23:22)
[2019-04-24 06:47] LABS: ABSOLUTE LYMPHOCYTES (AUTO) 0.9 10^3/uL (0.5-4.7); ABSOLUTE MONOCYTES (AUTO) 0.8 10^3/uL (0.1-1.4); ABSOLUTE NEUT (AUTO) 8.5 10^3/uL (1.7-8.2); BASOPHILS % (AUTO) 0.4 % (0-2); HEMATOCRIT 32.4 % (36.0-47.0); HEMOGLOBIN 10.6 g/dL (12.0-15.5); LYMPHOCYTES % (AUTO) 8.4 % (13-45); MEAN CORPUSCULAR HGB CONC 32.8 g/dL (32.0-36.0); MEAN CORPUSCULAR VOLUME 85 fl (80-97); MONOCYTES % (AUTO) 7.8 % (3-13); PLATELET COUNT 161 10^3/uL (150-450); RED BLOOD COUNT 3.81 10^6/uL (3.72-5.28); RED CELL DISTRIBUTION WIDTH 13.9 % (11.5-14.0); SEGMENTED NEUTROPHILS % (AUTO) 83.4 % (42-78); TOTAL CELLS COUNTED % (AUTO) 100 %; WHITE BLOOD COUNT 10.2 10^3/uL (4.0-10.5)
[2019-04-24 07:23] LABS: CREATINE KINASE MB 8.27 ng/mL (<4.55); NT PRO BNP 567 pg/mL (<450)
[2019-04-24 07:32] LABS: TROPONIN I < 0.012 ng/mL
[2019-04-24] MEDS ORDERED: NORMAL SALINE 250 ML IV PRN ×2 (08:18)
[2019-04-24] MEDS: NORMAL SALINE 1000 ML 1,000 ML IV PRN ×2 (08:28→20:17)
[2019-04-24] MEDS: ACETAMINOPHEN 325 MG TABLET PO PRN (08:29)
[2019-04-24] MEDS ORDERED: SODIUM POLYSTYRENE SULFONATE 15 GM/60 ML PR ONE (08:30)
--- NOTE | 2019-04-24 08:33 | PDOC PROGRESS REPORT ---
Subjective Progress Note for:: 04/24/19 Subjective:: 89 year old female female with history of hypothyroidism, mild chronic kidney disease, vertigo came to the emergency room after a fall at home. It was accidental fall. The work-up shows right femoral fracture. Dr. Mckayla Reece spoke to the orthopedist and Dr. Francisco and he agreed to see the patient first thing in the morning. Spoke to the patient's for at least half an hour he wants everything to be done and he wants her to be full code. 04/[id number]-shmf-old female admitted with history of fall found to have a right distal femur fracture. Hemoglobin dropped to 10.6. The nurse called me to notify that potassium is 6.7 this morning be going to repeat the CMP today. Echocardiogram was requested as per the orthopedic team request. Type and sc reen was also requested to be controlled 2 units of blood transfusion in case if needed postop basis. PT OT consult was requested social science research assistant consult was requested for placement. Reason For Visit: RT FEMORAL FRACTURE Physical Exam Vital Signs: Temp Pulse Resp BP Pulse Ox 98.2 F 74 16 104/45 L 93 04/24/19 07:53 04/24/19 07:53 04/24/19 07:53 04/24/19 07:53 04/24/19 07:53 Intake & Output 04/23/19 04/24/19 04/25/19 06:59 06:59 06:59 Intake Total 30 Output Total 200 Balance -170 Weight 62.2 kg General appearance: PRESENT: cooperative, mild distress Head exam: PRESENT: atraumatic Eye exam: PRESENT: PERRLA Mouth exam: PRESENT: moist, tongue midline Teeth exam: PRESENT: poor dentation Neck exam: ABSENT: carotid bruit, JVD, lymphadenopathy, thyromegaly Respiratory exam: PRESENT: clear to auscultation terrence. ABSENT: rales, rhonchi, wheezes Pulses: PRESENT: normal dorsalis pedis pul GI/Abdominal exam: PRESENT: normal bowel sounds, soft. ABSENT: distended, guarding, mass, organolmegaly, rebound, tenderness Rectal exam: PRESENT: deferred Gentrourinary exam: PRESENT: indwelling catheter Extremities exam: PRESENT: other Neurological exam: PRESENT: alert, awake, oriented to person, oriented to place, oriented to time, oriented to situation, CN II-XII grossly intact. ABSENT: motor sensory deficit Skin exam: PRESENT: dry, intact, warm. ABSENT: cyanosis, rash Results Laboratory Results: 04/24/19 06:32 04/24/19 06:32 04/23/19 04/23/19 04/23/19 17:22 17:22 17:22 WBC 11.8 H RBC 4.50 Hgb 12.5 Hct 38.1 MCV 85 MCH 27.9 MCHC 32.9 RDW 13.9 Plt Count 173 Seg Neutrophils % Not Reportable Lymphocytes % Not Reportable Monocytes % Not Reportable Eosinophils % Not Reportable Basophils % Not Reportable Absolute Neutrophils Not Reportable Absolute Lymphocytes Not Reportable Absolute Monocytes Not Reportable Absolute Eosinophils Not Reportable Absolute Basophils Not Reportable Sodium 141.4 Potassium 5.1 H Chloride 108 H Carbon Dioxide 28 Anion Gap 5 BUN 32 H Creatinine 1.02 Est GFR ( Amer) > 60 Est GFR (Non-Af Amer) 51 L Glucose 125 H Calcium 9.4 Magnesium Total Bilirubin 0.4 AST 29 ALT 26 Alkaline Phosphatase 73 Total Protein 6.3 Albumin 3.8 Triglycerides Cholesterol LDL Cholesterol Direct VLDL Cholesterol HDL Cholesterol TSH Urine Color Urine Appearance Urine pH Ur Specific [place] Urine Protein Urine Glucose (UA) Urine Ketones Urine Blood Urine Nitrite Ur Leukocyte Esterase Urine WBC (Auto) Urine RBC (Auto) Blood Type O POSITIVE Antibody Screen NEGATIVE 04/23/19 04/24/19 04/24/19 18:40 06:32 06:32 WBC 10.2 RBC 3.81 Hgb 10.6 L Hct 32.4 L MCV 85 MCH 28.0 MCHC 32.8 RDW 13.9 Plt Count 161 Seg Neutrophils % 83.4 H Lymphocytes % 8.4 L Monocytes % 7.8 Eosinophils % 0.0 Basophils % 0.4 Absolute Neutrophils 8.5 H Absolute Lymphocytes 0.9 Absolute Monocytes 0.8 Absolute Eosinophils 0.0 Absolute Basophils 0.0 Sodium Cancelled Potassium Cancelled Chloride Cancelled Carbon Dioxide Cancelled Anion Gap Cancelled BUN Cancelled Creatinine Cancelled Est GFR ( Amer) Cancelled Est GFR (Non-Af Amer) Cancelled Glucose Cancelled Calcium Cancelled Magnesium Cancelled Total Bilirubin Cancelled AST Cancelled ALT Cancelled Alkaline Phosphatase Cancelled Total Protein Cancelled Albumin Cancelled Triglycerides Cancelled Cholesterol Cancelled LDL Cholesterol Direct Cancelled VLDL Cholesterol Cancelled HDL Cholesterol Cancelled TSH Urine Color YELLOW Urine Appearance CLOUDY Urine pH 7.0 Ur Specific [place] 1.021 Urine Protein NEGATIVE Urine Glucose (UA) NEGATIVE Urine Ketones TRACE H Urine Blood NEGATIVE Urine Nitrite POSITIVE H Ur Leukocyte Esterase TRACE H Urine WBC (Auto) 6 Urine RBC (Auto) 1 Blood Type Antibody Screen 04/24/19 06:32 WBC RBC Hgb Hct MCV MCH MCHC RDW Plt Count Seg Neutrophils % Lymphocytes % Monocytes % Eosinophils % Basophils % Absolute Neutrophils Absolute Lymphocytes Absolute Monocytes Absolute Eosinophils Absolute Basophils Sodium Potassium Chloride Carbon Dioxide Anion Gap BUN Creatinine Est GFR ( Amer) Est GFR (Non-Af Amer) Glucose Calcium Magnesium Total Bilirubin AST ALT Alkaline Phosphatase Total Protein Albumin Triglycerides Cholesterol LDL Cholesterol Direct VLDL Cholesterol HDL Cholesterol TSH 1.12 Urine Color Urine Appearance Urine pH Ur Specific [place] Urine Protein Urine Glucose (UA) Urine Ketones Urine Blood Urine Nitrite Ur Leukocyte Esterase Urine WBC (Auto) Urine RBC (Auto) Blood Type Antibody Screen 04/23/19 04/23/19 04/23/19 17:22 17:22 17:22 Creatine Kinase 84 CK-MB (CK-2) 1.51 Troponin I < 0.012 Cancelled NT-Pro-B Natriuret Pep 04/24/19 04/24/19 04/24/19 00:19 00:19 06:32 Creatine Kinase 160 H Cancelled CK-MB (CK-2) 3.41 Troponin I < 0.012 NT-Pro-B Natriuret Pep 04/24/19 06:32 Creatine Kinase CK-MB (CK-2) 8.27 H Troponin I < 0.012 NT-Pro-B Natriuret Pep 567 H Impressions: Chest X-Ray 04/23/19 00:00 IMPRESSION: No definite acute cardiopulmonary process. Cervical Spine CT 04/23/19 15:32 IMPRESSION: CHRONIC DEGENERATIVE CHANGES. NO ACUTE FINDINGS. Femur X-Ray 04/23/19 15:32 IMPRESSION: Distal femoral fracture. Head CT 04/23/19 15:32 IMPRESSION: MILD CHRONIC CHANGES OF ATROPHY AND MICROVASCULAR ISCHEMIA. NO ACUTE PROCESS. EVIDENCE OF ACUTE STROKE: NO. Pelvis X-Ray 04/23/19 15:32 IMPRESSION: NEGATIVE STUDY OF THE PELVIS. Tibia/Fibula X-Ray 04/23/19 15:32 IMPRESSION: NEGATIVE STUDY OF THE RIGHT TIBIA AND FIBULA. NO RADIOGRAPHIC EVIDENCE OF ACUTE INJURY. Lower Extremity CT 07/25/19 17:25 IMPRESSION: Spiral fracture of the femur with distraction and overlap. Isolated nondisplaced anterior distal femoral cortical fracture superior to the prosthesis. Assessment and Plan - Diagnosis (1) Closed fracture of right distal femur Qualifiers: Encounter type: initial encounter Fracture morphology: unspecified fracture morphology Qualified Code(s): S72.401A - Unspecified fracture of lower end of right femur, initial encounter for closed fracture Is this a current diagnosis for this admission?: Yes Plan: 04/23/[id number]-dnum-old female came to the emergency room with history of fall. Found to have a right distal femoral fracture. Orthopedics was consulted by the ER and Dr. Francisco is going to see the patient tomorrow. Plan is going to be appears to put her in IMCU. As inpatient. Keep her n.p.o. from midnight. Started on IV fluids normal saline at 75 cc/h. Aspiration fall seizure precautions are requested. Ca's catheter was placed. OT consult PT consult social science research assistant consult was requested for placement. No Lovenox was initiated because of the possible surgery early in the morning. GI prophylaxis was initiated. Patient is going to be full code. EKG was nonspecific findings. Hemoglobin and renal function is normal. Patient because of the age moderate to high risk for surgery in my opinion. 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 Patient is in pain she is receiving IV morphine sliding scale. As per the orthopedic team requested type and screen was requested and echocardiogram was requested. CMP somehow was canceled this morning plan is to repeat the CMP today. The nurse notified me that potassium is 6.7 we are going to repeat the potassium level again today. Patient is going to be given Kayexalate edema. (2) Hypothyroidism Qualifiers: Hypothyroidism type: unspecified Qualified Code(s): E03.9 - Hypothyroidism, unspecified Is this a current diagnosis for this admission?: No - Time Time Spent with patient: 25-34 minutes Medications reviewed and adjusted accordingly: Yes Anticipated discharge: SNF
[2019-04-24 09:35] LABS: ALANINE AMINOTRANSFERASE 26 U/L (9-52); ALBUMIN 3.4 g/dL (3.5-5.0); ALKALINE PHOSPHATASE 59 U/L (38-126); ASPARTATE AMINO TRANSFERASE 33 U/L (14-36); BILIRUBIN,DIRECT 0.3 mg/dL (0.0-0.4); BILIRUBIN,TOTAL 0.7 mg/dL (0.2-1.3); BLOOD UREA NITROGEN 36 mg/dL (7-20); CALCIUM 9.2 mg/dL (8.4-10.2); CHOLESTEROL 176.88 mg/dL (0-200); CREATINE KINASE 393 U/L (30-135); GLUCOSE 114 mg/dL (75-110); POTASSIUM 5.7 mmol/L (3.6-5.0); TOTAL PROTEIN 5.7 g/dL (6.3-8.2); TRIGLYCERIDES 90 mg/dL (<150)
[2019-04-24 09:39] LABS: CARBON DIOXIDE 29 mmol/L (22-30); CHLORIDE 107 mmol/L (98-107)
[2019-04-24 09:46] LABS: DIRECT LDL 106 mg/dL (<100)
[2019-04-24] MEDS: PANTOPRAZOLE SODIUM 40 MG VIAL IV SCH ×2 (09:46→22:05)
[2019-04-24 09:53] LABS: ANION GAP 3 (5-19)
--- NOTE | 2019-04-24 10:14 | PDOC CONSULTATION ---
Consultation Consult Date: 04/24/19 Attending physician:: ARELY GONG Provider Consulted: WENDY PARK Consult reason:: Right distal femur periprosthetic fracture History of Present Illness Admission Date/PCP: 04/23/19 18:14 ANA FRIEDMAN NP History of Present Illness: MICHAEL ROY is a 89 year old female who presented to [facility] emergency department yesterday following a low energy fall at home. Examination demonstrated a periprosthetic fracture of the right distal femur. The patient has no other complaints. She denies sensory disturbance. She is complaining of moderate to severe discomfort localized to the area of the left knee. Past Medical History Cardiac Medical History: Denies: Myocardial Infarction, Hypertension Pulmonary Medical History: Denies: Asthma Neurological Medical History: Denies: Seizures GI Medical History: Denies: Hepatitis, Hiatal Hernia Psychiatric Medical History: Denies: Depression Hematology: Reports: Anemia - IRON INFUSIONS/D/C'D Denies: Sickle Cell Disease Past Surgical History Past Surgical History: Reports: Knee Replacement, Orthopedic Surgery Denies: Amputation, Mastectomy, Pacemaker Social History Lives with: Family, Spouse/Significant other Smoking Status: Never Smoker Frequency of Alcohol Use: None Hx Recreational Drug Use: No Drugs: None Hx Prescription Drug Abuse: No - Advance Directive Resuscitation Status: Full Code Family History Family History: Reviewed & Not Pertinent Parental Family History Reviewed: No Children Family History Reviewed: No Sibling(s) Family History Reviewed.: No Medication/Allergy Home Medications: Gabapentin 100 mg PO QHS 04/09/18 Levothyroxine Sodium [Synthroid 0.075 mg Tablet] 0.075 mg PO Q6AM 04/09/18 Diclofenac Sodium [Voltaren] 2 gm TP QIDP PRN 04/23/19 Fesoterodine Fumarate [Toviaz] 8 mg PO DAILY 04/23/19 Ketoconazole 1 applic TP DAILY 04/23/19 Lidocaine/Prilocaine [Lidocaine-Prilocaine Cream] 1 applic TP QHS MDD KNEES 04/23/19 Linaclotide [Linzess] 72 mg PO DAILY 04/23/19 Multivitamin [Tab-A-Carlos (Multiple Vitamin) Tablet] 1 tab PO DAILY 04/23/19 Allergies/Adverse Reactions: codeine Allergy (Intermediate, Verified 04/30/18 08:55) ITCHING Sulfa (Sulfonamide Antibiotics) Allergy (Intermediate, Verified 04/30/18 08:55) ITCHING Review of Systems Constitutional: ABSENT: chills, fever(s), headache(s), weight gain, weight loss Eyes: ABSENT: visual disturbances Ears: ABSENT: hearing changes Cardiovascular: ABSENT: chest pain, dyspnea on exertion, edema, orthropnea, palpitations Respiratory: ABSENT: cough, hemoptysis Gastrointestinal: ABSENT: abdominal pain, constipation, diarrhea, hematemesis, hematochezia, nausea, vomiting Genitourinary: ABSENT: dysuria, hematuria Musculoskeletal: PRESENT: deformity, joint swelling, other - Left femur fracture Integumentary: ABSENT: rash, wounds Neurological: PRESENT: frequent falls, lack of coordination, paresthesias Psychiatric: ABSENT: anxiety, depression, homidical ideation, suicidal ideation Endocrine: ABSENT: cold intolerance, heat intolerance, polydipsia, polyuria Hematologic/Lymphatic: ABSENT: easy bleeding, easy bruising Physical Exam Vital Signs: Temp Pulse Resp BP Pulse Ox 98.2 F 74 16 104/45 L 93 04/24/19 07:53 04/24/19 07:53 04/24/19 07:53 04/24/19 07:53 04/24/19 07:53 Intake & Output 04/23/19 04/24/19 04/25/19 06:59 06:59 06:59 Intake Total 30 919 Output Total 200 Balance -170 919 Weight 62.2 kg General appearance: PRESENT: no acute distress, well-developed, well-nourished Head exam: PRESENT: atraumatic, normocephalic Eye exam: PRESENT: conjunctiva pink, EOMI, PERRLA. ABSENT: scleral icterus Ear exam: PRESENT: normal external ear exam Mouth exam: PRESENT: moist, tongue midline Neck exam: ABSENT: carotid bruit, JVD, lymphadenopathy, thyromegaly Respiratory exam: PRESENT: clear to auscultation terrence. ABSENT: rales, rhonchi, wheezes Cardiovascular exam: PRESENT: RRR. ABSENT: diastolic murmur, rubs, systolic murmur Pulses: PRESENT: +1 pedal pulses bilateral Vascular exam: PRESENT: normal capillary refill GI/Abdominal exam: PRESENT: normal bowel sounds, soft. ABSENT: distended, guarding, mass, organolmegaly, rebound, tenderness Rectal exam: PRESENT: deferred Extremities exam: PRESENT: other - The right lower extremity is internally rotated. There is swelling at the right knee joint. There is pain localized to the distal femur. The patient is able to dorsiflex and plantarflex the right foot. Sensation is intact to touch. There is 1+ dorsalis pedis and posterior tibial pulses. Neurological exam: PRESENT: alert, awake, oriented to person, oriented to place, oriented to time, oriented to situation, CN II-XII grossly intact. ABSENT: mo tor sensory deficit Psychiatric exam: PRESENT: appropriate affect, normal mood. ABSENT: homicidal ideation, suicidal ideation Skin exam: PRESENT: dry, intact, warm. ABSENT: cyanosis, rash Results Laboratory Results: 04/24/19 06:32 04/24/19 09:07 04/23/19 04/23/19 04/23/19 17:22 17:22 17:22 WBC 11.8 H RBC 4.50 Hgb 12.5 Hct 38.1 MCV 85 MCH 27.9 MCHC 32.9 RDW 13.9 Plt Count 173 Seg Neutrophils % Not Reportable Lymphocytes % Not Reportable Monocytes % Not Reportable Eosinophils % Not Reportable Basophils % Not Reportable Absolute Neutrophils Not Reportable Absolute Lymphocytes Not Reportable Absolute Monocytes Not Reportable Absolute Eosinophils Not Reportable Absolute Basophils Not Reportable Sodium 141.4 Potassium 5.1 H Chloride 108 H Carbon Dioxide 28 Anion Gap 5 BUN 32 H Creatinine 1.02 Est GFR ( Amer) > 60 Est GFR (Non-Af Amer) 51 L Glucose 125 H Calcium 9.4 Magnesium Total Bilirubin 0.4 AST 29 ALT 26 Alkaline Phosphatase 73 Total Protein 6.3 Albumin 3.8 Triglycerides Cholesterol LDL Cholesterol Direct VLDL Cholesterol HDL Cholesterol TSH Urine Color Urine Appearance Urine pH Ur Specific [place] Urine Protein Urine Glucose (UA) Urine Ketones Urine Blood Urine Nitrite Ur Leukocyte Esterase Urine WBC (Auto) Urine RBC (Auto) Blood Type O POSITIVE Antibody Screen NEGATIVE 04/23/19 04/24/19 04/24/19 18:40 06:32 06:32 WBC 10.2 RBC 3.81 Hgb 10.6 L Hct 32.4 L MCV 85 MCH 28.0 MCHC 32.8 RDW 13.9 Plt Count 161 Seg Neutrophils % 83.4 H Lymphocytes % 8.4 L Monocytes % 7.8 Eosinophils % 0.0 Basophils % 0.4 Absolute Neutrophils 8.5 H Absolute Lymphocytes 0.9 Absolute Monocytes 0.8 Absolute Eosinophils 0.0 Absolute Basophils 0.0 Sodium Cancelled Potassium Cancelled Chloride Cancelled Carbon Dioxide Cancelled Anion Gap Cancelled BUN Cancelled Creatinine Cancelled Est GFR ( Amer) Cancelled Est GFR (Non-Af Amer) Cancelled Glucose Cancelled Calcium Cancelled Magnesium Cancelled Total Bilirubin Cancelled AST Cancelled ALT Cancelled Alkaline Phosphatase Cancelled Total Protein Cancelled Albumin Cancelled Triglycerides Cancelled Cholesterol Cancelled LDL Cholesterol Direct Cancelled VLDL Cholesterol Cancelled HDL Cholesterol Cancelled TSH Urine Color YELLOW Urine Appearance CLOUDY Urine pH 7.0 Ur Specific [place] 1.021 Urine Protein NEGATIVE Urine Glucose (UA) NEGATIVE Urine Ketones TRACE H Urine Blood NEGATIVE Urine Nitrite POSITIVE H Ur Leukocyte Esterase TRACE H Urine WBC (Auto) 6 Urine RBC (Auto) 1 Blood Type Antibody Screen 04/24/19 04/24/19 06:32 09:07 WBC RBC Hgb Hct MCV MCH MCHC RDW Plt Count Seg Neutrophils % Lymphocytes % Monocytes % Eosinophils % Basophils % Absolute Neutrophils Absolute Lymphocytes Absolute Monocytes Absolute Eosinophils Absolute Basophils Sodium 139.4 Potassium 5.7 H Chloride 107 Carbon Dioxide 29 Anion Gap 3 L BUN 36 H Creatinine 1.23 Est GFR ( Amer) 50 L Est GFR (Non-Af Amer) 41 L Glucose 114 H Calcium 9.2 Magnesium 2.6 H Total Bilirubin 0.7 AST 33 ALT 26 Alkaline Phosphatase 59 Total Protein 5.7 L Albumin 3.4 L Triglycerides 90 Cholesterol 176.88 LDL Cholesterol Direct 106 H VLDL Cholesterol 18.0 HDL Cholesterol 65 TSH 1.12 Urine Color Urine Appearance Urine pH Ur Specific [place] Urine Protein Urine Glucose (UA) Urine Ketones Urine Blood Urine Nitrite Ur Leukocyte Esterase Urine WBC (Auto) Urine RBC (Auto) Blood Type Antibody Screen 04/23/19 04/23/19 04/23/19 17:22 17:22 17:22 Creatine Kinase 84 CK-MB (CK-2) 1.51 Troponin I < 0.012 Cancelled NT-Pro-B Natriuret Pep 04/24/19 04/24/19 04/24/19 00:19 00:19 06:32 Creatine Kinase 160 H Cancelled CK-MB (CK-2) 3.41 Troponin I < 0.012 NT-Pro-B Natriuret Pep 04/24/19 04/24/19 06:32 09:07 Creatine Kinase 393 H CK-MB (CK-2) 8.27 H Troponin I < 0.012 NT-Pro-B Natriuret Pep 567 H Impressions: Chest X-Ray 04/23/19 00:00 IMPRESSION: No definite acute cardiopulmonary process. Cervical Spine CT 04/23/19 15:32 IMPRESSION: CHRONIC DEGENERATIVE CHANGES. NO ACUTE FINDINGS. Femur X-Ray 04/23/19 15:32 IMPRESSION: Distal femoral fracture. Head CT 04/23/19 15:32 IMPRESSION: MILD CHRONIC CHANGES OF ATROPHY AND MICROVASCULAR ISCHEMIA. NO ACUTE PROCESS. EVIDENCE OF ACUTE STROKE: NO. Pelvis X-Ray 04/23/19 15:32 IMPRESSION: NEGATIVE STUDY OF THE PELVIS. Tibia/Fibula X-Ray 04/23/19 15:32 IMPRESSION: NEGATIVE STUDY OF THE RIGHT TIBIA AND FIBULA. NO RADIOGRAPHIC EVIDENCE OF ACUTE INJURY. Lower Extremity CT 04/23/19 17:25 IMPRESSION: Spiral fracture of the femur with distraction and overlap. Isolated nondisplaced anterior distal femoral cortical fracture superior to the prosthesis. Assessment & Plan - Diagnosis (1) Closed fracture of right distal femur Qualifiers: Encounter type: initial encounter Fracture morphology: unspecified fracture morphology Qualified Code(s): S72.401A - Unspecified fracture of lower end of right femur, initial encounter for closed fracture Is this a current diagnosis for this admission?: Yes Plan: I have recommended open reduction with internal fixation of the right distal periprosthetic femur fracture. Risks, benefits, and alternatives were discussed with the patient, her , and daughter. Risks include the risk of during surgery. Risks also include infection, malunion, nonunion, and the need for revision of the total knee replacement. An opportunity for questions was pr ovided. All questions were answered to the patient's and family's satisfaction. They expressed understanding and wished to proceed with the surgical plan. - Time Time Spent: 30 to 50 Minutes
[2019-04-24] MEDS ORDERED: PHENYLEPHRINE HCL INJ/PF 10 MG/1 ML SDV ONE (12:39)
[2019-04-24] MEDS ORDERED: MIDAZOLAM 2 MG/2 ML INJ ONE ×2 (12:58→14:55)
[2019-04-24] MEDS ORDERED: FENTANYL CITRATE INJ/PF 100 MCG/2 ML AMPUL ONE (12:58)
[2019-04-24] MEDS ORDERED: PROPOFOL INJ 200 MG/20 ML VIAL IV ONE (12:59)
[2019-04-24] MEDS ORDERED: CEFAZOLIN INJ 1 GM VIAL ONE (13:16)
[2019-04-24] MEDS ORDERED: EPINEPHRINE INJ/PF 1 MG/1 ML AMPULE ONE ×2 (13:26→13:27)
[2019-04-24] MEDS ORDERED: EPHEDRINE SULFATE INJ 50 MG/1 ML AMPULE ONE (15:01)
[2019-04-24] MEDS ORDERED: KETAMINE HCL INJ 500 MG/10 ML VIAL ONE (15:01)
[2019-04-24] MEDS ORDERED: DIPHENHYDRAMINE HCL 50 MG/ML VIAL IV PRN ×2 (15:35→15:37)
[2019-04-24] MEDS ORDERED: MORPHINE SULFATE 10 MG/ML INJ IV PRN (15:35)
[2019-04-24] MEDS ORDERED: OXYCODONE-ACETAMINOPHEN 5-325 MG TABLET PO PRN ×2 (15:35)
[2019-04-24] MEDS ORDERED: ONDANSETRON HCL INJ/PF 4 MG/2 ML SDV IV PRN (15:35)
[2019-04-24] MEDS ORDERED: FENTANYL CITRATE INJ/PF 100 MCG/2 ML AMPUL IV PRN ×6 (15:35→15:37)
[2019-04-24] MEDS ORDERED: PROMETHAZINE HCL INJ 25 MG/1 ML VIAL IV PRN ×4 (15:35→15:37)
[2019-04-24] MEDS ORDERED: MEPERIDINE HCL/PF INJ 25 MG/1 ML DISP.SYRIN IV PRN ×2 (15:35→15:37)
--- NOTE | 2019-04-24 15:44 | XCELERA REPORT ---
[address] [address] Transthoracic Echocardiogram Report Name: MICHAEL ROY Age: 89 yrs Gender: Female : 1930 Patient Status: Inpatient Patient Location: [address] [place], [place] [address] Study Date: 04/24/2019 09:22 AM Weight: 137 lb Procedure: A two-dimensional transthoracic echocardiogram with color flow Doppler was performed. Study Quality: Poor. Reason For Study: tachycardia / Murmur / Pre- Op History: tachycardia / Murmur / Pre- Op. Ordering Physician: ARELY GONG Performed By: Jessica Pollock Interpretation Summary The left ventricle is normal in size. There is normal left ventricular wall thickness. LV EF is > than 65% The left ventricular ejection fraction is within normal limits. Doppler measurements suggest impaired left ventricular relaxation, which is associated with grade I/IV or mild diastolic dysfunction The left ventricular wall motion is normal. There is no thrombus. Cannot assess ASD,VSD,or PFO. The right ventricle is not well visualized secondary to technical limitations Right atrium not well visualized secondary to technical limitations The left atrial size is normal. There is no evidence of mitral valve prolapse. There is no vegetation seen on the mitral valve. There is no mitral valve stenosis. There is no mitral regurgitation noted. There is aortic sclerosis without aortic stenosis. There is no LVOT obstruction. No aortic regurgitation is present. There is no tricuspid stenosis. There is a trace amount of tricuspid regurgitation No significant pulmonary hypertension.RVSP is 28 to 33 mm of Hg , with RA mean of 5 to 10. The pulmonic valve is not well visualized. The aortic root is normal size. The inferior vena cava appeared normal and decreased > 50% with respiration (RAP 5-10 mmHg) There is no pericardial effusion. MMode/2D Measurements & Calculations RVDd: 2.0 cm LVIDd: 4.5 cm FS: 35.0 % Ao root diam: 2.9 cm IVSd: 0.95 cm LVIDs: 2.9 cm EDV(Teich): 91.1 ml LVPWd: 0.88 cm ESV(Teich): 32.4 ml Ao root area: 6.6 cm2 EF(Teich): 64.4 % Doppler Measurements & Calculations MV E max malka: MV dec slope: Ao V2 max: LV V1 max P.4 cm/sec 171.3 cm/sec 9.7 mmHg MV A max malka: 247.8 cm/sec2 Ao max PG: LV V1 max: 108.1 cm/sec MV dec time: 0.29 sec11.7 mmHg 155.7 cm/sec MV E/A: 0.66 PA V2 max: TR max malka: 92.4 cm/sec 237.7 cm/sec PA max P.4 mmHg TR max P.6 mmHg Left Ventricle The left ventricle is normal in size. There is normal left ventricular wall thickness. LV EF is > than 65%. The left ventricular ejection fraction is within normal limits. Doppler measurements suggest impaired left ventricular relaxation, which is associated with grade I/IV or mild diastolic dysfunction. The left ventricular wall motion is normal. There is no thrombus. Cannot assess ASD,VSD,or PFO. Right Ventricle The right ventricle is not well visualized secondary to technical limitations. Atria Right atrium not well visualized secondary to technical limitations. The left atrial size is normal. Mitral Valve There is mild mitral annular calcification. There is no evidence of mitral valve prolapse. There is no vegetation seen on the mitral valve. There is no mitral valve stenosis. There is no mitral regurgitation noted. Aortic Valve There is no aortic valvular vegetation. There is aortic sclerosis without aortic stenosis. There is no LVOT obstruction. No aortic regurgitation is present. Tricuspid Valve There is no tricuspid stenosis. There is a trace amount of tricuspid regurgitation. No significant pulmonary hypertension.RVSP is 28 to 33 mm of Hg , with RA mean of 5 to 10. Pulmonic Valve The pulmonic valve is not well visualized. Great Vessels The aortic root is normal size. The inferior vena cava appeared normal and decreased > 50% with respiration (RAP 5-10 mmHg). Effusions There is no pericardial effusion. : ARELY GONG > Lisa Patricio
--- NOTE | 2019-04-24 16:19 | RADIOLOGY REPORT (SQ) ---
EXAM DESCRIPTION: FEMUR RIGHT; NO CHG FLUORO COMPLETED DATE/TIME: 04/24/2019 4:11 pm REASON FOR STUDY: ORIF RIGHT FEMUR COMPARISON: None. FLUOROSCOPY TIME: 0.2 minutes Spot images saved to PACS. TECHNIQUE: Intra-operative images acquired during surgical procedure to evaluate progress. NUMBER OF IMAGES: 6 LIMITATIONS: None. FINDINGS: Fluoroscopy was provided for intraoperative procedure. Please refer to the operative repo rt for further discussion. IMPRESSION: IMAGE(S) OBTAINED DURING PROCEDURE. COMMENT: Quality ID [id number]: Final reports for procedures using fluoroscopy that document radiation exp osure indices, or exposure time and number of fluorographic images (if radiation exposure indices are not available) Please consult full operative report of the attending physician for description of the procedure. TECHNICAL DOCUMENTATION: JOB ID: [id number] [employer]- All Rights Reserved Reading location - IP/workstation name: [email or web address]
--- NOTE | 2019-04-24 16:19 | RADIOLOGY REPORT (SQ) ---
EXAM DESCRIPTION: FEMUR RIGHT; NO CHG FLUORO COMPLETED DATE/TIME: 04/24/2019 4:11 pm REASON FOR STUDY: ORIF RIGHT FEMUR COMPARISON: None. FLUOROSCOPY TIME: 0.2 minutes Spot images saved to PACS. TECHNIQUE: Intra-operative images acquired during surgical procedure to evaluate progress. NUMBER OF IMAGES: 6 LIMITATIONS: None. FINDINGS: Fluoroscopy was provided for intraoperative procedure. Please refer to the operative repo rt for further discussion. IMPRESSION: IMAGE(S) OBTAINED DURING PROCEDURE. COMMENT: Quality ID [id number]: Final reports for procedures using fluoroscopy that document radiation exp osure indices, or exposure time and number of fluorographic images (if radiation exposure indices are not available) Please consult full operative report of the attending physician for description of the procedure. TECHNICAL DOCUMENTATION: JOB ID: [id number] [employer]- All Rights Reserved Reading location - IP/workstation name: [email or web address]
--- NOTE | 2019-04-24 16:55 | Operative Report ---
Operative Report DATE OF SURGERY: 04/24/19 PREOPERATIVE DIAGNOSIS: Right distal femur periprosthetic fracture POSTOPERATIVE DIAGNOSIS: Same OPERATION: Open reduction with internal fixation right distal femur fracture. Implants: [place] [employer] SURGEON: WENDY PARK ANESTHESIA: Spinal COMPLICATIONS: None ESTIMATED BLOOD LOSS: 50 cc INTRAOPERATIVE FINDINGS: Right distal femur periprosthetic fracture with comminution. Distal femoral implant well fixed PROCEDURE: Indications for procedure: Ms. aguilar is a pleasant 89-year-old woman who sustained a low energy at home last evening resulting in a displaced distal femur periprosthetic fracture. Description of procedure: Following the induction of a spinal anesthetic and administration of antibiotics, the patient was positioned supine on the operating room table and all bony prominences were padded. The right lower extremity was sterilely prepped with ChloraPrep and draped in standard fashion. A tourniquet was not used. Lateral approach the distal femur was performed. Sharp incision was performed through skin. The tensor fascia liberty was incised revealing the vastus lateralis. The vastus lateralis was elevated taking care to coagulate perforating vessels. The fracture was a long spiral fracture beginning at the distal femoral implant and coursing proximally. The spiral fracture was reduced and clamped into position. 3 separate lag screws were placed to hold the fracture in anatomical position. A [place] distal femoral plate was applied to the lateral aspect of the femur. Its position was checked under image intensification. A combination of locking and nonlocking screws were placed distally at the articular surface. A combination of locking and nonlocking screws were placed along the shaft with care taken to achieve fixation of 8 cortices proximal to the fracture. Image intensification was used which confirmed anatomic reduction of the fracture with correct placement of implants. The leg was taken to a full range of motion without evidence of instability and with normal tracking of the total knee components. Copious irrigation was performed. The fascia was reapproximated [id number] with 0 Vicryl. The subcutaneous tissue was closed with interrupted sutures using 2-0 Vicryl. The skin was closed with a horizontal mattress suture using 3-0 nylon. Dressing was then applied. The patient tolerated the procedure well without complication and was brought to the recovery room in stable condition.
[2019-04-24] MEDS: CEFAZOLIN SODIUM 2 GM in DEXTROSE 5%-WATER 100 ML IV SCH (22:05)
[2019-04-25] MEDS: MORPHINE SULFATE 10 MG/ML INJ IV PRN ×2 (01:54→22:48)
[2019-04-25] MEDS: HALOPERIDOL LACTATE INJ 5 MG/1 ML VIAL IV PRN (02:39)
[2019-04-25] MEDS: CEFAZOLIN SODIUM 2 GM in DEXTROSE 5%-WATER 100 ML IV SCH ×3 (05:45→22:47)
[2019-04-25 06:32] LABS: ABSOLUTE BASOPHILS # (AUTO) 0.1 10^3/uL (0.0-0.2); ABSOLUTE MONOCYTES (AUTO) 0.9 10^3/uL (0.1-1.4); ABSOLUTE NEUT (AUTO) 7.5 10^3/uL (1.7-8.2); BASOPHILS % (AUTO) 0.5 % (0-2); HEMATOCRIT 25.2 % (36.0-47.0); LYMPHOCYTES % (AUTO) 10.1 % (13-45); MEAN CORPUSCULAR HEMOGLOBIN 28.5 pg (27.0-33.4); MEAN CORPUSCULAR HGB CONC 33.6 g/dL (32.0-36.0); MEAN CORPUSCULAR VOLUME 85 fl (80-97); MONOCYTES % (AUTO) 9.8 % (3-13); PLATELET COUNT 130 10^3/uL (150-450); RED BLOOD COUNT 2.97 10^6/uL (3.72-5.28); RED CELL DISTRIBUTION WIDTH 13.8 % (11.5-14.0); SEGMENTED NEUTROPHILS % (AUTO) 79.6 % (42-78); TOTAL CELLS COUNTED % (AUTO) 100 %; WHITE BLOOD COUNT 9.5 10^3/uL (4.0-10.5)
[2019-04-25 06:51] LABS: HEMOGLOBIN 8.5 g/dL (12.0-15.5)
[2019-04-25 07:02] LABS: ALANINE AMINOTRANSFERASE 20 U/L (9-52); ALBUMIN 2.8 g/dL (3.5-5.0); ALKALINE PHOSPHATASE 56 U/L (38-126); ANION GAP 6 (5-19); ASPARTATE AMINO TRANSFERASE 70 U/L (14-36); BILIRUBIN,DIRECT 0.3 mg/dL (0.0-0.4); BILIRUBIN,TOTAL 0.5 mg/dL (0.2-1.3); BLOOD UREA NITROGEN 28 mg/dL (7-20); CALCIUM 8.4 mg/dL (8.4-10.2); CARBON DIOXIDE 25 mmol/L (22-30); CHLORIDE 109 mmol/L (98-107); GLUCOSE 143 mg/dL (75-110); POTASSIUM 4.6 mmol/L (3.6-5.0)
[2019-04-25] MEDS: PANTOPRAZOLE SODIUM 40 MG VIAL IV SCH ×2 (10:29→22:47)
[2019-04-25] MEDS: ENOXAPARIN SODIUM INJ 30 MG/0.3 ML DISP.SYRIN SUBCUT SCH ×2 (10:33→22:46)
--- NOTE | 2019-04-25 10:47 | PDOC PROGRESS REPORT ---
Subjective Progress Note for:: 04/25/19 Subjective:: 89 year old female female with history of hypothyroidism, mild chronic kidney disease, vertigo came to the emergency room after a fall at home. It was accidental fall. The work-up shows right femoral fracture. Dr. Mckayla Reece spoke to the orthopedist and Dr. Francisco and he agreed to see the patient first thing in the morning. Spoke to the patient's for at least half an hour he wants everything to be done and he wants her to be full code. 04/24/[id number]-ylux-old female admitted with history of fall found to have a right distal femur fracture. Hemoglobin dropped to 10.6. The nurse called me to notify that potassium is 6.7 this morning be going to repeat the CMP today. Echocardiogram was requested as per the orthopedic team request. Type and sc reen was also requested to be controlled 2 units of blood transfusion in case if needed postop basis. PT OT consult was requested social media specialist consult was requested for placement. 04/25/2019- 89 yrs old admitted for fall and rt distal femur periprosthetic fracture s/p ORIF yesterday . hemoglobin dropped to 8.5 and saurabh resolved. Reason For Visit: RT FEMORAL FRACTURE Physical Exam Vital Signs: Temp Pulse Resp BP Pulse Ox 97.6 F 103 H 12 131/59 H 92 04/25/19 07:45 04/25/19 07:45 04/25/19 07:45 04/25/19 07:45 04/25/19 07:45 Intake & Output 04/24/19 04/25/19 04/26/19 06:59 06:59 06:59 Intake Total 30 4005 Output Total 200 725 Balance -170 3280 Weight 62.2 kg 66.2 kg Results Laboratory Results: 04/25/19 06:22 04/25/19 06:22 04/24/19 04/25/19 04/25/19 19:09 06:22 06:22 WBC 9.5 RBC 2.97 L Hgb 8.5 L D Hct 25.2 L MCV 85 MCH 28.5 MCHC 33.6 RDW 13.8 Plt Count 130 L Seg Neutrophils % 79.6 H Lymphocytes % 10.1 L Monocytes % 9.8 Eosinophils % 0.0 Basophils % 0.5 Absolute Neutrophils 7.5 Absolute Lymphocytes 1.0 Absolute Monocytes 0.9 Absolute Eosinophils 0.0 Absolute Basophils 0.1 Sodium 139.6 Potassium 4.8 4.6 Chloride 109 H Carbon Dioxide 25 Anion Gap 6 BUN 28 H Creatinine 0.97 Est GFR ( Amer) > 60 Est GFR (Non-Af Amer) 54 L Glucose 143 H Calcium 8.4 Magnesium 2.2 Total Bilirubin 0.5 AST 70 H ALT 20 Alkaline Phosphatase 56 Total Protein 5.0 L Albumin 2.8 L 04/23/19 04/23/19 04/23/19 17:22 17:22 17:22 Creatine Kinase 84 CK-MB (CK-2) 1.51 Troponin I < 0.012 Cancelled NT-Pro-B Natriuret Pep 04/24/19 04/24/19 04/24/19 00:19 00:19 06:32 Creatine Kinase 160 H Cancelled CK-MB (CK-2) 3.41 Troponin I < 0.012 NT-Pro-B Natriuret Pep 04/24/19 04/24/19 06:32 09:07 Creatine Kinase 393 H CK-MB (CK-2) 8.27 H Troponin I < 0.012 NT-Pro-B Natriuret Pep 567 H Impressions: Chest X-Ray 04/23/19 00:00 IMPRESSION: No definite acute cardiopulmonary process. Cervical Spine CT 04/23/19 15:32 IMPRESSION: CHRONIC DEGENERATIVE CHANGES. NO ACUTE FINDINGS. Head CT 04/23/19 15:32 IMPRESSION: MILD CHRONIC CHANGES OF ATROPHY AND MICROVASCULAR ISCHEMIA. NO ACUTE PROCESS. EVIDENCE OF ACUTE STROKE: NO. Pelvis X-Ray 04/23/19 15:32 IMPRESSION: NEGATIVE STUDY OF THE PELVIS. Tibia/Fibula X-Ray 04/23/19 15:32 IMPRESSION: NEGATIVE STUDY OF THE RIGHT TIBIA AND FIBULA. NO RADIOGRAPHIC EVIDENCE OF ACUTE INJURY. Lower Extremity CT 04/23/19 17:25 IMPRESSION: Spiral fracture of the femur with distraction and overlap. Isolated nondisplaced anterior distal femoral cortical fracture superior to the prosthesis. Femur X-Ray 04/24/19 00:00 IMPRESSION: IMAGE(S) OBTAINED DURING PROCEDURE. Fluoroscopy 04/24/19 00:00 IMPRESSION: IMAGE(S) OBTAINED DURING PROCEDURE. Assessment and Plan - Diagnosis (1) Closed fracture of right distal femur Qualifiers: Encounter type: initial encounter Fracture morphology: unspecified fracture morphology Qualified Code(s): S72.401A - Unspecified fracture of lower end of right femur, initial encounter for closed fracture Is this a current diagnosis for this admission?: Yes Plan: 04/23/[id number]-kyds-old female came to the emergency room with history of fall. Found to have a right distal femoral fracture. Orthopedics was consulted by the ER and Dr. Francisco is going to see the patient tomorrow. Plan is going to be appears to put her in IMCU. As inpatient. Keep her n.p.o. from midnight. Started on IV fluids normal saline at 75 cc/h. Aspiration fall seizure precautions are requested. Ca's catheter was placed. OT consult PT consult social media specialist consult was requested for placement. No Lovenox was initiated because of the possible surgery early in the morning. GI prophylaxis was initiated. Patient is going to be full code. EKG was nonspecific findings. Hemoglobin and renal function is normal. Patient because of the age moderate to high risk for surgery in my opinion. 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 Patient is in pain she is receiving IV morphine sliding scale. As per the orthopedic team requested type and screen was requested and echocardiogram was requested. CMP somehow was canceled this morning plan is to repeat the CMP today. The nurse notified me that potassium is 6.7 we are going to repeat the potassium level again today. Patient is going to be given Kayexalate edema. 04/25/[id number]-gumn-old female with admitted with history of fall found to have right distal femur periprosthetic fracture. Status post ORIF. PT is working with the patient. OT consult was requested and digital media planner consult was requested. Plan is to continue the present management. (2) Hypothyroidism Qualifiers: Hypothyroidism type: unspecified Qualified Code(s): E03.9 - Hypothyroidism, unspecified Is this a current diagnosis for this admission?: No Plan: 04/23/2019-patient has history of hypothyroidism going to check the TSH levels and hold levothyroxine for now once the surgery was done we are going to restart p.o. medications after cleared by the orthopedic since. 04/25/2019-plan is to restart her levothyroxine from today. (3) Fall Qualifiers: Encounter type: initial encounter Qualified Code(s): W19.XXXA - Unspecified fall, initial encounter Is this a current diagnosis for this admission?: Yes Plan: admitted for fall with fracture s/p ORIF (4) CKD (chronic kidney disease) Is this a current diagnosis for this admission?: No Plan: 04/25/2019-patient's family is given the history of CKD yesterday serum creatinine is around 1.26 today it was 0.97. SAURABH resolved. Plan is to continue the IV fluids at 75 cc/h. - Time Time Spent with patient: 25-34 minutes Smoking Cessation Education: 3 to 10 minutes Medications reviewed and adjusted accordingly: Yes Anticipated discharge: SNF
--- NOTE | 2019-04-25 17:45 | PDOC PROGRESS REPORT ---
Subjective Progress Note for:: 04/25/19 Subjective:: Patient is resting comfortably. Moderate discomfort following surgery. No complaint of sensory disturbance. Reason For Visit: RT FEMORAL FRACTURE POD # 1 s/p ORIF right distal femur periprosthetic fracture Physical Exam Vital Signs: Temp Pulse Resp BP Pulse Ox 100.4 F 97 14 119/55 L 96 04/25/19 15:23 04/25/19 15:23 04/25/19 15:23 04/25/19 15:23 04/25/19 15:23 Intake & Output 04/24/19 04/25/19 04/26/19 06:59 06:59 06:59 Intake Total 30 4005 118 Output Total 200 725 40 Balance -170 3280 78 Weight 62.2 kg 66.2 kg General appearance: PRESENT: no acute distress - Patient resting comfortably Exam: The surgical dressing is intact. Patient is able to dorsiflex and plantarflex the foot. Sensation is intact to touch. Head exam: PRESENT: atraumatic, normocephalic Results Laboratory Results: 04/25/19 06:22 04/25/19 06:22 04/24/19 04/25/19 04/25/19 19:09 06:22 06:22 WBC 9.5 RBC 2.97 L Hgb 8.5 L D Hct 25.2 L MCV 85 MCH 28.5 MCHC 33.6 RDW 13.8 Plt Count 130 L Seg Neutrophils % 79.6 H Lymphocytes % 10.1 L Monocytes % 9.8 Eosinophils % 0.0 Basophils % 0.5 Absolute Neutrophils 7.5 Absolute Lymphocytes 1.0 Absolute Monocytes 0.9 Absolute Eosinophils 0.0 Absolute Basophils 0.1 Sodium 139.6 Potassium 4.8 4.6 Chloride 109 H Carbon Dioxide 25 Anion Gap 6 BUN 28 H Creatinine 0.97 Est GFR ( Amer) > 60 Est GFR (Non-Af Amer) 54 L Glucose 143 H Calcium 8.4 Magnesium 2.2 Total Bilirubin 0.5 AST 70 H ALT 20 Alkaline Phosphatase 56 Total Protein 5.0 L Albumin 2.8 L 04/23/19 04/23/19 04/23/19 17:22 17:22 17:22 Creatine Kinase 84 CK-MB (CK-2) 1.51 Troponin I < 0.012 Cancelled NT-Pro-B Natriuret Pep 04/24/19 04/24/19 04/24/19 00:19 00:19 06:32 Creatine Kinase 160 H Cancelled CK-MB (CK-2) 3.41 Troponin I < 0.012 NT-Pro-B Natriuret Pep 04/24/19 04/24/19 06:32 09:07 Creatine Kinase 393 H CK-MB (CK-2) 8.27 H Troponin I < 0.012 NT-Pro-B Natriuret Pep 567 H Impressions: Chest X-Ray 04/23/19 00:00 IMPRESSION: No definite acute cardiopulmonary process. Cervical Spine CT 04/23/19 15:32 IMPRESSION: CHRONIC DEGENERATIVE CHANGES. NO ACUTE FINDINGS. Head CT 04/23/19 15:32 IMPRESSION: MILD CHRONIC CHANGES OF ATROPHY AND MICROVASCULAR ISCHEMIA. NO ACUTE PROCESS. EVIDENCE OF ACUTE STROKE: NO. Pelvis X-Ray 04/23/19 15:32 IMPRESSION: NEGATIVE STUDY OF THE PELVIS. Tibia/Fibula X-Ray 04/23/19 15:32 IMPRESSION: NEGATIVE STUDY OF THE RIGHT TIBIA AND FIBULA. NO RADIOGRAPHIC EVIDENCE OF ACUTE INJURY. Lower Extremity CT 04/23/19 17:25 IMPRESSION: Spiral fracture of the femur with distraction and overlap. Isolated nondisplaced anterior distal femoral cortical fracture superior to the prosthesis. Femur X-Ray 04/24/19 00:00 IMPRESSION: IMAGE(S) OBTAINED DURING PROCEDURE. Fluoroscopy 04/24/19 00:00 IMPRESSION: IMAGE(S) OBTAINED DURING PROCEDURE. Assessment & Plan - Diagnosis (1) Closed fracture of right distal femur Qualifiers: Encounter type: initial encounter Fracture morphology: unspecified fracture morphology Qualified Code(s): S72.401A - Unspecified fracture of lower end of right femur, initial encounter for closed fracture Is this a current diagnosis for this admission?: Yes - Time Time Spent with patient: Less than 15 minutes Anticipated discharge: SNF Disposition: Discharge to SNF - Plan Summary Plan Summary: POD # 1 s/p ORIF right distal femur fracture Ancef 1 g for 24 hours PT/ OT for ambulation and mobilization. Patient is strict NWB on the right leg. May move right knee as tolerated DVT prophylaxis: lovenox while impatient. May switch to ASA upon discharge.
--- NOTE | 2019-04-25 23:10 | EKG REPORT ---
SEVERITY:- BORDERLINE ECG - SINUS RHYTHM BORDERLINE LEFT AXIS DEVIATION CONSIDER ANTERIOR INFARCT BORDERLINE T ABNORMALITIES, LATERAL LEADS : Confirmed by: Castro Marsh 25-Apr-2019 23:09:32
[2019-04-26] MEDS: NORMAL SALINE 1000 ML 1,000 ML IV PRN (01:45)
[2019-04-26] MEDS: MORPHINE SULFATE 10 MG/ML INJ IV PRN ×3 (06:33→20:43)
--- NOTE | 2019-04-26 08:44 | PDOC PROGRESS REPORT ---
Subjective Progress Note for:: 04/26/19 Subjective:: 89 year old female female with history of hypothyroidism, mild chronic kidney disease, vertigo came to the emergency room after a fall at home. It was accidental fall. The work-up shows right femoral fracture. Dr. Mckayla Reece spoke to the orthopedist and Dr. Francisco and he agreed to see the patient first thing in the morning. Spoke to the patient's for at least half an hour he wants everything to be done and he wants her to be full code. 04/24/[id number]-rgem-old female admitted with history of fall found to have a right distal femur fracture. Hemoglobin dropped to 10.6. The nurse called me to notify that potassium is 6.7 this morning be going to repeat the CMP today. Echocardiogram was requested as per the orthopedic team request. Type and screen was also requested to be controlled 2 units of blood transfusion in case if needed postop basis. PT OT consult was requested social director consult was requested for placement. 04/25/2019- 89 yrs old admitted for fall and rt distal femur periprosthetic fracture s/p ORIF yesterday . hemoglobin dropped to 8.5 and saurabh resolved. 04/26/[id number]-aveq-old female admitted with history of fall prior to distal femur fracture status post ORIF day 2 no complications. Patient is doing well. Physical therapy consult was requested OT consult was requested social director consult was requested for placement. No acute events in the last 24 hours. Afebrile. Reason For Visit: RT FEMORAL FRACTURE Physical Exam Vital Signs: Temp Pulse Resp BP Pulse Ox 98.2 F 89 16 138/40 H 95 04/26/19 07:47 04/26/19 07:47 04/26/19 07:47 04/26/19 07:47 04/26/19 07:47 Intake & Output 04/25/19 04/26/19 04/27/19 06:59 06:59 06:59 Intake Total 4005 1436 Output Total 725 565 Balance 3280 871 Weight 66.2 kg 67.4 kg General appearance: PRESENT: no acute distress Head exam: PRESENT: atraumatic Eye exam: PRESENT: PERRLA Mouth exam: PRESENT: moist, tongue midline Teeth exam: PRESENT: poor dentation Neck exam: ABSENT: carotid bruit, JVD, lymphadenopathy, thyromegaly Respiratory exam: PRESENT: clear to auscultation terrence. ABSENT: rales, rhonchi, wheezes Cardiovascular exam: PRESENT: RRR. ABSENT: diastolic murmur, rubs, systolic murmur GI/Abdominal exam: PRESENT: normal bowel sounds, soft. ABSENT: distended, guarding, mass, organolmegaly, rebound, tenderness Rectal exam: PRESENT: deferred Extremities exam: PRESENT: full ROM. ABSENT: calf tenderness, clubbing, pedal edema Neurological exam: PRESENT: alert, awake, oriented to person, oriented to place, oriented to time, oriented to situation, CN II-XII grossly intact. ABSENT: motor sensory deficit Psychiatric exam: PRESENT: appropriate affect, normal mood. ABSENT: homicidal ideation, suicidal ideation Results Laboratory Results: 04/23/19 04/23/19 04/23/19 17:22 17:22 17:22 Creatine Kinase 84 CK-MB (CK-2) 1.51 Troponin I < 0.012 Cancelled NT-Pro-B Natriuret Pep 04/24/19 04/24/19 04/24/19 00:19 00:19 06:32 Creatine Kinase 160 H Cancelled CK-MB (CK-2) 3.41 Troponin I < 0.012 NT-Pro-B Natriuret Pep 04/24/19 04/24/19 06:32 09:07 Creatine Kinase 393 H CK-MB (CK-2) 8.27 H Troponin I < 0.012 NT-Pro-B Natriuret Pep 567 H Impressions: Chest X-Ray 04/23/19 00:00 IMPRESSION: No definite acute cardiopulmonary process. Cervical Spine CT 04/23/19 15:32 IMPRESSION: CHRONIC DEGENERATIVE CHANGES. NO ACUTE FINDINGS. Head CT 04/23/19 15:32 IMPRESSION: MILD CHRONIC CHANGES OF ATROPHY AND MICROVASCULAR ISCHEMIA. NO ACUTE PROCESS. EVIDENCE OF ACUTE STROKE: NO. Pelvis X-Ray 04/23/19 15:32 IMPRESSION: NEGATIVE STUDY OF THE PELVIS. Tibia/Fibula X-Ray 04/23/19 15:32 IMPRESSION: NEGATIVE STUDY OF THE RIGHT TIBIA AND FIBULA. NO RADIOGRAPHIC EVIDENCE OF ACUTE INJURY. Lower Extremity CT 04/23/19 17:25 IMPRESSION: Spiral fracture of the femur with distraction and overlap. Isolated nondisplaced anterior distal femoral cortical fracture superior to the prosthesis. Femur X-Ray 04/24/19 00:00 IMPRESSION: IMAGE(S) OBTAINED DURING PROCEDURE. Fluoroscopy 04/24/19 00:00 IMPRESSION: IMAGE(S) OBTAINED DURING PROCEDURE. Assessment and Plan - Diagnosis (1) Closed fracture of right distal femur Qualifiers: Encounter type: initial encounter Fracture morphology: unspecified fracture morphology Qualified Code(s): S72.401A - Unspecified fracture of lower end of right femur, initial encounter for closed fracture Is this a current diagnosis for this admission?: Yes Plan: 04/23/[id number]-gkwl-old female came to the emergency room with history of fall. Found to have a right distal femoral fracture. Orthopedics was consulted by the ER and Dr. Francisco is going to see the patient tomorrow. Plan is going to be appears to put her in IMCU. As inpatient. Keep her n.p.o. from midnight. Started on IV fluids normal saline at 75 cc/h. Aspiration fall seizure precautions are requested. Ca's catheter was placed. OT consult PT consult social director consult was requested for placement. No Lovenox was initiated because of the possible surgery early in the morning. GI prophylaxis was initiated. Patient is going to be full code. EKG was nonspecific findings. Hemoglobin and renal function is normal. Patient because of the age moderate to high risk for surgery in my opinion. 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 Patient is in pain she is receiving IV morphine sliding scale. As per the orthopedic team requested type and screen was requested and echocardiogram was requested. CMP somehow was canceled this morning plan is to repeat the CMP today. The nurse notified me that potassium is 6.7 we are going to repeat the potassium level again today. Patient is going to be given Kayexalate edema. 04/25/[id number]-awxd-old female with admitted with history of fall found to have ri ght distal femur periprosthetic fracture. Status post ORIF. PT is working with the patient. OT consult was requested and master planner consult was requested. Plan is to continue the present management. 04/26/[id number]-tdfq-old female admitted with right distal femur fracture status post ORIF day 2. No acute events in the last 24 hours. Physical therapy working with the patient. Social workers are trying to get her replacement. Patient is going to be on nonweightbearing on the right leg. (2) Hypothyroidism Qualifiers: Hypothyroidism type: unspecified Qualified Code(s): E03.9 - Hypothyroidism, unspecified Is this a current diagnosis for this admission?: No Plan: 04/23/2019-patient has history of hypothyroidism going to check the TSH levels and hold levothyroxine for now once the surgery was done we are going to restart p.o. medications after cleared by the orthopedic since. 04/25/2019-plan is to restart her levothyroxine from today. 04/26/2019-patient has history of hypothyroidism levothyroxine was restarted. (3) Fall Qualifiers: Encounter type: initial encounter Qualified Code(s): W19.XXXA - Unspecified fall, initial encounter Is this a current diagnosis for this admission?: Yes Plan: admitted for fall with fracture s/p ORIF 04/26/2019-patient admitted with history of fall and a right hip fracture status post ORIF day 2 fall precautions are requested patient is on nonweightbearing right leg measures (4) CKD (chronic kidney disease) Is this a current diagnosis for this admission?: No Plan: 04/25/2019-patient's family is given the history of CKD yesterday serum creatinine is around 1.26 today it was 0.97. SAURABH resolved. Plan is to continue the IV fluids at 75 cc/h. - Time Time Spent with patient: 25-34 minutes Medications reviewed and adjusted accordingly: Yes Anticipated discharge: SNF
[2019-04-26 08:55] LABS: ABSOLUTE LYMPHOCYTES (AUTO) 1.1 10^3/uL (0.5-4.7); ABSOLUTE MONOCYTES (AUTO) 0.9 10^3/uL (0.1-1.4); ABSOLUTE NEUT (AUTO) 6.4 10^3/uL (1.7-8.2); BASOPHILS % (AUTO) 0.3 % (0-2); EOSINOPHILS % (AUTO) 0.5 % (0-6); HEMATOCRIT 21.1 % (36.0-47.0); LYMPHOCYTES % (AUTO) 13.3 % (13-45); MEAN CORPUSCULAR HEMOGLOBIN 28.2 pg (27.0-33.4); MEAN CORPUSCULAR HGB CONC 33.4 g/dL (32.0-36.0); MEAN CORPUSCULAR VOLUME 85 fl (80-97); MONOCYTES % (AUTO) 10.3 % (3-13); PLATELET COUNT 115 10^3/uL (150-450); SEGMENTED NEUTROPHILS % (AUTO) 75.6 % (42-78); TOTAL CELLS COUNTED % (AUTO) 100 %; WHITE BLOOD COUNT 8.4 10^3/uL (4.0-10.5)
[2019-04-26] MEDS ORDERED: NORMAL SALINE 250 ML IV PRN ×2 (09:02)
[2019-04-26 09:04] LABS: ALANINE AMINOTRANSFERASE 23 U/L (9-52); ALBUMIN 2.2 g/dL (3.5-5.0); ALKALINE PHOSPHATASE 56 U/L (38-126); ASPARTATE AMINO TRANSFERASE 82 U/L (14-36); BILIRUBIN,DIRECT 0.1 mg/dL (0.0-0.4); BILIRUBIN,TOTAL 0.3 mg/dL (0.2-1.3); BLOOD UREA NITROGEN 21 mg/dL (7-20); CALCIUM 7.7 mg/dL (8.4-10.2); GLUCOSE 101 mg/dL (75-110); POTASSIUM 3.3 mmol/L (3.6-5.0); TOTAL PROTEIN 4.2 g/dL (6.3-8.2)
[2019-04-26 09:09] LABS: CARBON DIOXIDE 26 mmol/L (22-30); CHLORIDE 109 mmol/L (98-107)
[2019-04-26 09:11] LABS: ANION GAP 4 (5-19)
[2019-04-26] MEDS: ENOXAPARIN SODIUM INJ 30 MG/0.3 ML DISP.SYRIN SUBCUT SCH ×2 (09:51→21:00)
[2019-04-26] MEDS: PANTOPRAZOLE SODIUM 40 MG VIAL IV SCH (09:53)
[2019-04-26] MEDS: LEVOTHYROXINE SODIUM 0.075 MG TABLET PO SCH (09:53)
--- NOTE | 2019-04-26 15:55 | PDOC PROGRESS REPORT ---
Subjective Progress Note for:: 04/26/19 Subjective:: The patient is receiving the first of 2 units of packed red blood cells. She is resting comfortably. She is not complaining of any discomfort following surgery; she reports the pain is improved since surgery. No complaint of sensory disturbance. Reason For Visit: RT FEMORAL FRACTURE Physical Exam Vital Signs: Temp Pulse Resp BP Pulse Ox 98.7 F 69 14 128/40 H 94 04/26/19 12:22 04/26/19 14:00 04/26/19 12:22 04/26/19 12:22 04/26/19 12:22 Intake & Output 04/25/19 04/26/19 04/27/19 06:59 06:59 06:59 Intake Total 4005 1436 118 Output Total 725 565 150 Balance 3280 871 -32 Weight 66.2 kg 67.4 kg General appearance: PRESENT: no acute distress Head exam: PRESENT: atraumatic Pulses: PRESENT: +1 pedal pulses bilateral Musculoskeletal exam: PRESENT: other - The surgical dressing is intact. There is no drainage. There is normal passive motion of the knee. The patient is able to dorsiflex and plantarflex the foot. Results Laboratory Results: 04/26/19 08:17 04/26/19 08:17 04/26/19 04/26/19 04/26/19 08:17 08:17 09:28 WBC 8.4 RBC 2.50 L Hgb 7.0 L Hct 21.1 L MCV 85 MCH 28.2 MCHC 33.4 RDW 14.0 Plt Count 115 L Seg Neutrophils % 75.6 Lymphocytes % 13.3 Monocytes % 10.3 Eosinophils % 0.5 Basophils % 0.3 Absolute Neutrophils 6.4 Absolute Lymphocytes 1.1 Absolute Monocytes 0.9 Absolute Eosinophils 0.0 Absolute Basophils 0.0 Sodium 138.8 Potassium 3.3 L Chloride 109 H Carbon Dioxide 26 Anion Gap 4 L BUN 21 H Creatinine 0.89 Est GFR ( Amer) > 60 Est GFR (Non-Af Amer) > 60 Glucose 101 Calcium 7.7 L Magnesium 2.2 Total Bilirubin 0.3 AST 82 H ALT 23 Alkaline Phosphatase 56 Total Protein 4.2 L Albumin 2.2 L Blood Type O POSITIVE Antibody Screen NEGATIVE 04/23/19 04/23/19 04/23/19 17:22 17:22 17:22 Creatine Kinase 84 CK-MB (CK-2) 1.51 Troponin I < 0.012 Cancelled NT-Pro-B Natriuret Pep 04/24/19 04/24/19 04/24/19 00:19 00:19 06:32 Creatine Kinase 160 H Cancelled CK-MB (CK-2) 3.41 Troponin I < 0.012 NT-Pro-B Natriuret Pep 04/24/19 04/24/19 06:32 09:07 Creatine Kinase 393 H CK-MB (CK-2) 8.27 H Troponin I < 0.012 NT-Pro-B Natriuret Pep 567 H Impressions: Chest X-Ray 04/23/19 00:00 IMPRESSION: No definite acute cardiopulmonary process. Cervical Spine CT 04/23/19 15:32 IMPRESSION: CHRONIC DEGENERATIVE CHANGES. NO ACUTE FINDINGS. Head CT 04/23/19 15:32 IMPRESSION: MILD CHRONIC CHANGES OF ATROPHY AND MICROVASCULAR ISCHEMIA. NO ACUTE PROCESS. EVIDENCE OF ACUTE STROKE: NO. Pelvis X-Ray 04/23/19 15:32 IMPRESSION: NEGATIVE STUDY OF THE PELVIS. Tibia/Fibula X-Ray 04/23/19 15:32 IMPRESSION: NEGATIVE STUDY OF THE RIGHT TIBIA AND FIBULA. NO RADIOGRAPHIC EVIDENCE OF ACUTE INJURY. Lower Extremity CT 04/23/19 17:25 IMPRESSION: Spiral fracture of the femur with distraction and overlap. Isolated nondisplaced anterior distal femoral cortical fracture superior to the prosthesis. Femur X-Ray 04/24/19 00:00 IMPRESSION: IMAGE(S) OBTAINED DURING PROCEDURE. Fluoroscopy 04/24/19 00:00 IMPRESSION: IMAGE(S) OBTAINED DURING PROCEDURE. Assessment & Plan - Diagnosis (1) Closed fracture of right distal femur Qualifiers: Encounter type: initial encounter Fracture morphology: unspecified fracture morphology Qualified Code(s): S72.401A - Unspecified fracture of lower end of right femur, initial encounter for closed fracture Is this a current diagnosis for this admission?: Yes - Time Time Spent with patient: 25-34 minutes Anticipated discharge: SNF Within: within 48 hours - The patient is clear from an orthopedic standpoint. She may be discharged by the medical staff when medically appropriate. - Plan Summary Plan Summary: Postoperative day #2 status post ORIF right distal femur periprosthetic fracture. The patient is stable from an orthopedic standpoint and may be discharged when medically appropriate to a fpc facility for rehabilitation. The patient is receiving 2 units of packed red blood cells for acute blood loss anemia. Would recommend continuation of Lovenox for DVT prophylaxis while an inpatient. May change to aspirin 81 mg twice daily upon discharge. Would recommend continued physical therapy and Occupational Therapy. Patient must remain strict nonweightbearing on the right leg. Active and passive motion of the right knee is recommended. I would like to see the patient 2 weeks following discharge for a wound check and possible removal of operative sutures.
[2019-04-26 21:02] LABS: ABSOLUTE BASOPHILS # (AUTO) 0.1 10^3/uL (0.0-0.2); ABSOLUTE EOSINOPHILS # (AUTO) 0.1 10^3/uL (0.0-0.6); ABSOLUTE LYMPHOCYTES (AUTO) 1.3 10^3/uL (0.5-4.7); ABSOLUTE MONOCYTES (AUTO) 0.9 10^3/uL (0.1-1.4); ABSOLUTE NEUT (AUTO) 9.2 10^3/uL (1.7-8.2); BASOPHILS % (AUTO) 0.7 % (0-2); MEAN CORPUSCULAR HEMOGLOBIN 28.6 pg (27.0-33.4); MEAN CORPUSCULAR VOLUME 84 fl (80-97); MONOCYTES % (AUTO) 7.6 % (3-13); PLATELET COUNT 116 10^3/uL (150-450); RED BLOOD COUNT 3.44 10^6/uL (3.72-5.28); RED CELL DISTRIBUTION WIDTH 13.6 % (11.5-14.0); SEGMENTED NEUTROPHILS % (AUTO) 79.7 % (42-78); TOTAL CELLS COUNTED % (AUTO) 100 %; WHITE BLOOD COUNT 11.5 10^3/uL (4.0-10.5)
[2019-04-26 21:03] LABS: HEMOGLOBIN 9.9 g/dL (12.0-15.5)
[2019-04-26] MEDS: HALOPERIDOL LACTATE INJ 5 MG/1 ML VIAL IV PRN (23:28)
[2019-04-27] MEDS: LEVOTHYROXINE SODIUM 0.075 MG TABLET PO SCH (05:55)
[2019-04-27] MEDS ORDERED: POTASSIUM CHLORIDE 10 MEQ CAPSULE.ER PO ONE ×2 (09:45→09:55)
--- NOTE | 2019-04-27 09:53 | PDOC PROGRESS REPORT ---
Subjective Progress Note for:: 04/27/19 Subjective:: 89 year old female female with history of hypothyroidism, mild chronic kidney disease, vertigo came to the emergency room after a fall at home. It was accidental fall. The work-up shows right femoral fracture. Dr. Mckayla Reece spoke to the orthopedist and Dr. Francisco and he agreed to see the patient first thing in the morning. Spoke to the patient's for at least half an hour he wants everything to be done and he wants her to be full code. 04/24/[id number]-jude-old female admitted with history of fall found to have a right distal femur fracture. Hemoglobin dropped to 10.6. The nurse called me to notify that potassium is 6.7 this morning be going to repeat the CMP today. Echocardiogram was requested as per the orthopedic team request. Type and sc reen was also requested to be controlled 2 units of blood transfusion in case if needed postop basis. PT OT consult was requested social work professor consult was requested for placement. 04/25/2019- 89 yrs old admitted for fall and rt distal femur periprosthetic fracture s/p ORIF yesterday . hemoglobin dropped to 8.5 and saurabh resolved. 04/26/[id number]-zekh-old female admitted with history of fall prior to distal femur fracture status post ORIF day 2 no complications. Patient is doing well. Physical therapy consult was requested OT consult was requested social work professor consult was requested for placement. No acute events in the last 24 hours. Afebrile. 04/27/[id number]-smkj-old female admitted with history of fall and status post right distal femoral fracture status post ORIF day 3. No complications. Patient received 2 units of blood transfusion hemoglobin is 9.9 today. Potassium is 3.3 which is going to be supplemented. Physical therapy is working with placement patient may most likely go to [facility] in 72 hours. Reason For Visit: RT FEMORAL FRACTURE Physical Exam Vital Signs: Temp Pulse Resp BP Pulse Ox 98.1 F 62 18 120/48 L 93 04/27/19 04:02 04/27/19 07:00 04/27/19 04:02 04/27/19 04:02 04/27/19 04:21 Intake & Output 04/26/19 04/27/19 04/28/19 06:59 06:59 06:59 Intake Total 1436 2313 Output Total 569 728 Balance 871 6178 Weight 67.4 kg 68.1 kg General appearance: PRESENT: no acute distress, cooperative Head exam: PRESENT: atraumatic Eye exam: PRESENT: PERRLA Mouth exam: PRESENT: moist, tongue midline Teeth exam: PRESENT: poor dentation Neck exam: ABSENT: carotid bruit, JVD, lymphadenopathy, thyromegaly Respiratory exam: PRESENT: decreased breath sounds Cardiovascular exam: PRESENT: RRR. ABSENT: diastolic murmur, rubs, systolic murmur GI/Abdominal exam: PRESENT: normal bowel sounds, soft. ABSENT: distended, guarding, mass, organolmegaly, rebound, tenderness Rectal exam: PRESENT: deferred Extremities exam: PRESENT: full ROM. ABSENT: calf tenderness, clubbing, pedal edema Neurological exam: PRESENT: alert, awake, oriented to person, oriented to place, oriented to time, oriented to situation, CN II-XII grossly intact. ABSENT: motor sensory deficit Psychiatric exam: PRESENT: appropriate affect, normal mood. ABSENT: homicidal ideation, suicidal ideation Results Laboratory Results: 04/26/19 20:45 04/26/19 08:17 04/26/19 04/26/19 09:28 20:45 WBC 11.5 H RBC 3.44 L Hgb 9.9 L D Hct 29.0 L MCV 84 MCH 28.6 MCHC 34.0 RDW 13.6 Plt Count 116 L Seg Neutrophils % 79.7 H Lymphocytes % 11.0 L Monocytes % 7.6 Eosinophils % 1.0 Basophils % 0.7 Absolute Neutrophils 9.2 H Absolute Lymphocytes 1.3 Absolute Monocytes 0.9 Absolute Eosinophils 0.1 Absolute Basophils 0.1 Blood Type O POSITIVE Antibody Screen NEGATIVE 04/23/19 04/23/19 04/23/19 17:22 17:22 17:22 Creatine Kinase 84 CK-MB (CK-2) 1.51 Troponin I < 0.012 Cancelled NT-Pro-B Natriuret Pep 04/24/19 04/24/19 04/24/19 00:19 00:19 06:32 Creatine Kinase 160 H Cancelled CK-MB (CK-2) 3.41 Troponin I < 0.012 NT-Pro-B Natriuret Pep 04/24/19 04/24/19 06:32 09:07 Creatine Kinase 393 H CK-MB (CK-2) 8.27 H Troponin I < 0.012 NT-Pro-B Natriuret Pep 567 H Impressions: Chest X-Ray 04/23/19 00:00 IMPRESSION: No definite acute cardiopulmonary process. Cervical Spine CT 04/23/19 15:32 IMPRESSION: CHRONIC DEGENERATIVE CHANGES. NO ACUTE FINDINGS. Head CT 04/23/19 15:32 IMPRESSION: MILD CHRONIC CHANGES OF ATROPHY AND MICROVASCULAR ISCHEMIA. NO ACUTE PROCESS. EVIDENCE OF ACUTE STROKE: NO. Pelvis X-Ray 04/23/19 15:32 IMPRESSION: NEGATIVE STUDY OF THE PELVIS. Tibia/Fibula X-Ray 04/23/19 15:32 IMPRESSION: NEGATIVE STUDY OF THE RIGHT TIBIA AND FIBULA. NO RADIOGRAPHIC EVIDENCE OF ACUTE INJURY. Lower Extremity CT 04/23/19 17:25 IMPRESSION: Spiral fracture of the femur with distraction and overlap. Isolated nondisplaced anterior distal femoral cortical fracture superior to the prosthesis. Femur X-Ray 04/24/19 00:00 IMPRESSION: IMAGE(S) OBTAINED DURING PROCEDURE. Fluoroscopy 04/24/19 00:00 IMPRESSION: IMAGE(S) OBTAINED DURING PROCEDURE. Assessment and Plan - Diagnosis (1) Closed fracture of right distal femur Qualifiers: Encounter type: initial encounter Fracture morphology: unspecified fracture morphology Qualified Code(s): S72.401A - Unspecified fracture of lower end of right femur, initial encounter for closed fracture Is this a current diagnosis for this admission?: Yes Plan: 04/23/[id number]-tmsd-old female came to the emergency room with history of fall. Found to have a right distal femoral fracture. Orthopedics was consulted by the ER and Dr. Francisco is going to see the patient tomorrow. Plan is going to be appears to put her in IMCU. As inpatient. Keep her n.p.o. from midnight. Started on IV fluids normal saline at 75 cc/h. Aspiration fall seizure precautions are requested. Ca's catheter was placed. OT consult PT consult social work professor consult was requested for placement. No Lovenox was initiated because of the possible surgery early in the morning. GI prophylaxis was initiated. Patient is going to be full code. EKG was nonspecific findings. Hemoglobin and renal function is normal. Patient because of the age moderate to high risk for surgery in my opinion. 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 Patient is in pain she is receiving IV morphine sliding scale. As per the orthopedic team requested type and screen was requested and echocardiogram was requested. CMP somehow was canceled this morning plan is to repeat the CMP today. The nurse notified me that potassium is 6.7 we are going to repeat the potassium level again today. Patient is going to be given Kayexalate edema. 04/25/20191945-49-kesz-old female with admitted with history of fall found to have right distal femur periprosthetic fracture. Status post ORIF. PT is working with the patient. OT consult was requested and business continuity planner consult was requested. Plan is to continue the present management. 04/26/20193836-45-atfg-old female admitted with right distal femur fracture status post ORIF day 2. No acute events in the last 24 hours. Physical therapy working with the patient. Social workers are trying to get her replacement. Patient is going to be on nonweightbearing on the right leg. 04/27/20194551-95-gvdh-old female admitted with a fall found to have right distal femur fracture status post ORIF day 3. Physical therapy is working with the patient. Nonweightbearing measures implemented for the right leg. Family is expressing desire to for the patient go to [facility]. (2) Hypothyroidism Qualifiers: Hypothyroidism type: unspecified Qualified Code(s): E03.9 - Hypothyroidism, unspecified Is this a current diagnosis for this admission?: No Plan: 04/23/2019-patient has history of hypothyroidism going to check the TSH levels and hold levothyroxine for now once the surgery was done we are going to restart p.o. medications after cleared by the orthopedic since. 04/25/2019-plan is to restart her levothyroxine from today. 04/26/2019-patient has history of hypothyroidism levothyroxine was restarted. (3) Fall Qualifiers: Encounter type: initial encounter Qualified Code(s): W19.XXXA - Unspecified fall, initial encounter Is this a current diagnosis for this admission?: Yes (4) CKD (chronic kidney disease) Is this a current diagnosis for this admission?: No Plan: 04/25/2019-patient's family is given the history of CKD yesterday serum creatinine is around 1.26 today it was 0.97. SAURABH resolved. Plan is to continue the IV fluids at 75 cc/h. 04/27/2019-patient creatinine today 0.89 acute kidney injury is resolved. (5) Hypokalemia Is this a current diagnosis for this admission?: Yes Plan: 04/27/2019-patient serum potassium is 3.3 to give 40 mg of p.o. potassium today. (6) Acute blood loss anemia Is this a current diagnosis for this admission?: Yes Plan: 10/28/2018-patient has acute blood loss anemia hemoglobin dropped to 7 postsurgical status post 2 units of blood transfusion and hemoglobin is 9.9 today. Plan is to recheck the labs tomorrow. - Time Time Spent with patient: 25-34 minutes Medications reviewed and adjusted accordingly: Yes Anticipated discharge: Home
[2019-04-27] MEDS: ENOXAPARIN SODIUM INJ 30 MG/0.3 ML DISP.SYRIN SUBCUT SCH ×2 (09:56→22:30)
[2019-04-27] MEDS ORDERED: MORPHINE SULFATE 10 MG/ML INJ IV PRN ×2 (10:16→10:17)
[2019-04-27] MEDS ORDERED: ONDANSETRON HCL INJ/PF 4 MG/2 ML SDV IV PRN (10:30)
[2019-04-27] MEDS: MORPHINE SULFATE 10 MG/ML INJ IV PRN (20:23)
[2019-04-27] MEDS: ACETAMINOPHEN 325 MG TABLET PO PRN (22:30)
[2019-04-28 05:39] LABS: ABSOLUTE EOSINOPHILS # (AUTO) 0.2 10^3/uL (0.0-0.6); ABSOLUTE MONOCYTES (AUTO) 0.7 10^3/uL (0.1-1.4); BASOPHILS % (AUTO) 0.4 % (0-2); HEMATOCRIT 28.1 % (36.0-47.0); HEMOGLOBIN 9.7 g/dL (12.0-15.5); LYMPHOCYTES % (AUTO) 14.7 % (13-45); MEAN CORPUSCULAR HGB CONC 34.5 g/dL (32.0-36.0); MEAN CORPUSCULAR VOLUME 84 fl (80-97); MONOCYTES % (AUTO) 9.7 % (3-13); PLATELET COUNT 160 10^3/uL (150-450); RED BLOOD COUNT 3.34 10^6/uL (3.72-5.28); SEGMENTED NEUTROPHILS % (AUTO) 72.2 % (42-78); TOTAL CELLS COUNTED % (AUTO) 100 %; WHITE BLOOD COUNT 6.9 10^3/uL (4.0-10.5)
[2019-04-28 06:04] LABS: ALANINE AMINOTRANSFERASE 13 U/L (9-52); ALBUMIN 2.2 g/dL (3.5-5.0); ALKALINE PHOSPHATASE 58 U/L (38-126); ASPARTATE AMINO TRANSFERASE 46 U/L (14-36); BILIRUBIN,DIRECT 0.2 mg/dL (0.0-0.4); BILIRUBIN,TOTAL 0.7 mg/dL (0.2-1.3); BLOOD UREA NITROGEN 16 mg/dL (7-20); CHLORIDE 109 mmol/L (98-107); GLUCOSE 97 mg/dL (75-110); POTASSIUM 3.8 mmol/L (3.6-5.0); TOTAL PROTEIN 4.4 g/dL (6.3-8.2)
[2019-04-28 06:09] LABS: CARBON DIOXIDE 28 mmol/L (22-30)
[2019-04-28 06:13] LABS: ANION GAP 3 (5-19)
[2019-04-28] MEDS: LEVOTHYROXINE SODIUM 0.075 MG TABLET PO SCH (06:20)
[2019-04-28] MEDS: MORPHINE SULFATE 10 MG/ML INJ IV PRN ×2 (06:21→08:59)
[2019-04-28] MEDS: ENOXAPARIN SODIUM INJ 30 MG/0.3 ML DISP.SYRIN SUBCUT SCH (09:01)
--- NOTE | 2019-04-28 09:40 | PDOC PROGRESS REPORT ---
Subjective Progress Note for:: 04/28/19 Subjective:: 89 year old female female with history of hypothyroidism, mild chronic kidney disease, vertigo came to the emergency room after a fall at home. It was accidental fall. The work-up shows right femoral fracture. Dr. Mckayla Reece spoke to the orthopedist and Dr. Franicsco and he agreed to see the patient first thing in the morning. Spoke to the patient's for at least half an hour he wants everything to be done and he wants her to be full code. 04/24/20193812-00-sxsu-old female admitted with history of fall found to have a right distal femur fracture. Hemoglobin dropped to 10.6. The nurse called me to notify that potassium is 6.7 this morning be going to repeat the CMP today. Echocardiogram was requested as per the orthopedic team request. Type and sc reen was also requested to be controlled 2 units of blood transfusion in case if needed postop basis. PT OT consult was requested social work associate consult was requested for placement. 04/25/2019- 89 yrs old admitted for fall and rt distal femur periprosthetic fracture s/p ORIF yesterday . hemoglobin dropped to 8.5 and saurabh resolved. 04/26/20194400-85-xpan-old female admitted with history of fall prior to distal femur fracture status post ORIF day 2 no complications. Patient is doing well. Physical therapy consult was requested OT consult was requested social work associate consult was requested for placement. No acute events in the last 24 hours. Afebrile. 04/27/[id number]-wbjj-old female admitted with history of fall and status post right distal femoral fracture status post ORIF day 3. No complications. Patient received 2 units of blood transfusion hemoglobin is 9.9 today. Potassium is 3.3 which is going to be supplemented. Physical therapy is working with placement patient may most likely go to [facility] in 72 hours. 04/28/20191916-16-aasw-old female admitted with history of fall found to have right distal femur fracture status post ORIF -day 4. Physical therapy is working the patient today. No acute events. Patient is requesting Linzess and Colace today. Reason For Visit: RT FEMORAL FRACTURE Physical Exam Vital Signs: Temp Pulse Resp BP Pulse Ox 97.6 F 73 17 147/71 H 92 04/28/19 08:30 04/28/19 08:30 04/28/19 08:30 04/28/19 08:30 04/28/19 08:30 Intake & Output 04/27/19 04/28/19 04/29/19 06:59 06:59 06:59 Intake Total 2313 840 Output Total 725 8730 Balance 1588 -610 Weight 68.1 kg 69.5 kg General appearance: PRESENT: no acute distress Head exam: PRESENT: atraumatic Eye exam: PRESENT: PERRLA Mouth exam: PRESENT: moist, tongue midline Teeth exam: PRESENT: poor dentation Neck exam: ABSENT: carotid bruit, JVD, lymphadenopathy, thyromegaly Respiratory exam: PRESENT: clear to auscultation terrence. ABSENT: rales, rhonchi, wheezes Cardiovascular exam: PRESENT: RRR. ABSENT: diastolic murmur, rubs, systolic murmur GI/Abdominal exam: PRESENT: normal bowel sounds, soft. ABSENT: distended, guarding, mass, organolmegaly, rebound, tenderness Rectal exam: PRESENT: deferred Gentrourinary exam: PRESENT: indwelling catheter Neurological exam: PRESENT: alert, awake, oriented to person, oriented to place, oriented to time, oriented to situation, CN II-XII grossly intact. ABSENT: motor sensory deficit Psychiatric exam: PRESENT: appropriate affect, normal mood. ABSENT: homicidal ideation, suicidal ideation Results Laboratory Results: 04/28/19 04:43 04/28/19 04:43 04/28/19 04/28/19 04:43 04:43 WBC 6.9 RBC 3.34 L Hgb 9.7 L Hct 28.1 L MCV 84 MCH 29.0 MCHC 34.5 RDW 14.0 Plt Count 160 Seg Neutrophils % 72.2 Lymphocytes % 14.7 Monocytes % 9.7 Eosinophils % 3.0 Basophils % 0.4 Absolute Neutrophils 5.0 Absolute Lymphocytes 1.0 Absolute Monocytes 0.7 Absolute Eosinophils 0.2 Absolute Basophils 0.0 Sodium 139.9 Potassium 3.8 Chloride 109 H Carbon Dioxide 28 Anion Gap 3 L BUN 16 Creatinine 0.76 Est GFR ( Amer) > 60 Est GFR (Non-Af Amer) > 60 Glucose 97 Calcium 8.0 L Magnesium 2.2 Total Bilirubin 0.7 AST 46 H ALT 13 Alkaline Phosphatase 58 Total Protein 4.4 L Albumin 2.2 L 04/23/19 04/23/19 04/23/19 17:22 17:22 17:22 Creatine Kinase 84 CK-MB (CK-2) 1.51 Troponin I < 0.012 Cancelled NT-Pro-B Natriuret Pep 04/24/19 04/24/19 04/24/19 00:19 00:19 06:32 Creatine Kinase 160 H Cancelled CK-MB (CK-2) 3.41 Troponin I < 0.012 NT-Pro-B Natriuret Pep 04/24/19 04/24/19 06:32 09:07 Creatine Kinase 393 H CK-MB (CK-2) 8.27 H Troponin I < 0.012 NT-Pro-B Natriuret Pep 567 H Impressions: Chest X-Ray 04/23/19 00:00 IMPRESSION: No definite acute cardiopulmonary process. Cervical Spine CT 04/23/19 15:32 IMPRESSION: CHRONIC DEGENERATIVE CHANGES. NO ACUTE FINDINGS. Head CT 04/23/19 15:32 IMPRESSION: MILD CHRONIC CHANGES OF ATROPHY AND MICROVASCULAR ISCHEMIA. NO ACUTE PROCESS. EVIDENCE OF ACUTE STROKE: NO. Pelvis X-Ray 04/23/19 15:32 IMPRESSION: NEGATIVE STUDY OF THE PELVIS. Tibia/Fibula X-Ray 04/23/19 15:32 IMPRESSION: NEGATIVE STUDY OF THE RIGHT TIBIA AND FIBULA. NO RADIOGRAPHIC EVIDENCE OF ACUTE INJURY. Lower Extremity CT 04/23/19 17:25 IMPRESSION: Spiral fracture of the femur with distraction and overlap. Isolated nondisplaced anterior distal femoral cortical fracture superior to the prosthesis. Femur X-Ray 04/24/19 00:00 IMPRESSION: IMAGE(S) OBTAINED DURING PROCEDURE. Fluoroscopy 04/24/19 00:00 IMPRESSION: IMAGE(S) OBTAINED DURING PROCEDURE. Assessment and Plan - Diagnosis (1) Closed fracture of right distal femur Qualifiers: Encounter type: initial encounter Fracture morphology: unspecified fracture morphology Qualified Code(s): S72.401A - Unspecified fracture of lower end of right femur, initial encounter for closed fracture Is this a current diagnosis for this admission?: Yes Plan: 04/23/20192434-14-mgmh-old female came to the emergency room with history of fall. Found to have a right distal femoral fracture. Orthopedics was consulted by the ER and Dr. Francisco is going to see the patient tomorrow. Plan is going to be appears to put her in IMCU. As inpatient. Keep her n.p.o. from midnight. Started on IV fluids normal saline at 75 cc/h. Aspiration fall seizure precautions are requested. Ca's catheter was placed. OT consult PT consult social work associate consult was requested for placement. No Lovenox was initiated because of the possible surgery early in the morning. GI prophylaxis was initiated. Patient is going to be full code. EKG was nonspecific findings. Hemoglobin and renal function is normal. Patient because of the age moderate to high risk for surgery in my opinion. 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 Patient is in pain she is receiving IV morphine sliding scale. As per the orth opedic team requested type and screen was requested and echocardiogram was requested. CMP somehow was canceled this morning plan is to repeat the CMP today. The nurse notified me that potassium is 6.7 we are going to repeat the potassium level again today. Patient is going to be given Kayexalate edema. 04/25/[id number]-olgd-old female with admitted with history of fall found to have right distal femur periprosthetic fracture. Status post ORIF. PT is working with the patient. OT consult was requested and sr. merchandise planner consult was requested. Plan is to continue the present management. 04/26/20196482-13-jmse-old female admitted with right distal femur fracture status post ORIF day 2. No acute events in the last 24 hours. Physical therapy working with the patient. Social workers are trying to get her replacement. Patient is going to be on nonweightbearing on the right leg. 04/27/[id number]-ftsg-old female admitted with a fall found to have right distal femur fracture status post ORIF day 3. Physical therapy is working with the patient. Nonweightbearing measures implemented for the right leg. Family is expressing desire to for the patient go to [facility]. 04/28/[id number]-htzo-old female admitted with right distal femur fracture status post ORIF day 4. No postop complications. Physical therapy working with the patient. Waiting for placement. (2) Hypothyroidism Qualifiers: Hypothyroidism type: unspecified Qualified Code(s): E03.9 - Hypothyroidism, unspecified Is this a current diagnosis for this admission?: No Plan: 04/23/2019-patient has history of hypothyroidism going to check the TSH levels and hold levothyroxine for now once the surgery was done we are going to restart p.o. medications after cleared by the orthopedic since. 04/25/2019-plan is to restart her levothyroxine from today. 04/26/2019-patient has history of hypothyroidism levothyroxine was restarted. 04/28/2019-plan is to continue p.o. levothyroxine during the hospital stay. (3) Fall Qualifiers: Encounter type: initial encounter Qualified Code(s): W19.XXXA - Unspecified fall, initial encounter Is this a current diagnosis for this admission?: Yes (4) CKD (chronic kidney disease) Is this a current diagnosis for this admission?: No Plan: 04/25/2019-patient's family is given the history of CKD yesterday serum creatinine is around 1.26 today it was 0.97. SAURABH resolved. Plan is to continue the IV fluids at 75 cc/h. 04/27/2019-patient creatinine today 0.89 acute kidney injury is resolved. 04/28/2019-patient has history of CKD but the serum creatinine today 0.76 within normal limits. 7 (5) Hypokalemia Is this a current diagnosis for this admission?: Yes Plan: 04/27/2019-patient serum potassium is 3.3 to give 40 mg of p.o. potassium today. 04/28/2019-serum potassium today is 3.8 hypokalemia is resolved. (6) Acute blood loss anemia Is this a current diagnosis for this admission?: Yes Plan: 04/27/2019-patient has acute blood loss anemia hemoglobin dropped to 7 postsurgical status post 2 units of blood transfusion and hemoglobin is 9.9 today. Plan is to recheck the labs tomorrow. 04/28/2019-patient hemoglobin is 9.1 hemoglobin dropped to 7.02 days ago 2 units of blood transfusion given acute blood loss anemia most likely postsurgical. Today's hemoglobin is 9.1 - Time Time Spent with patient: 25-34 minutes Medications reviewed and adjusted accordingly: Yes Anticipated discharge: [facility]
[2019-04-28] MEDS ORDERED: (PENDING PHARMACY ID) (Ketoconazole [Ketoconazole] 1 APPLIC) TP SCH (10:00)
[2019-04-28] MEDS ORDERED: MULTIVITAMIN TABLET PO SCH (10:00)
[2019-04-28] MEDS ORDERED: DOCUSATE SODIUM 100 MG/10 ML UDC PO SCH (10:00)
[2019-04-28] MEDS ORDERED: (PENDING PHARMACY ID) (Fesoterodine Fumarate [Toviaz] 8 MG) PO SCH (10:00)
[2019-04-28] MEDS ORDERED: LINACLOTIDE 72 MG PO SCH (10:00)
--- NOTE | 2019-04-28 12:16 | PDOC TRANSFER SUMMARY ---
General - Admit/Disc Date/PCP Admission Date/Primary Care Provider: 04/23/19 18:14 ANA FRIEDMAN NP Discharge Date: 04/28/19 - Discharge Diagnosis (1) Closed fracture of right distal femur Is this a current diagnosis for this admission?: Yes Summary: 04/23/[id number]-jdin-old female came to the emergency room with history of fall. Found to have a right distal femoral fracture. Orthopedics was consulted by the ER and Dr. Francisco is going to see the patient tomorrow. Plan is going to be appears to put her in IMCU. As inpatient. Keep her n.p.o. from midnight. Started on IV fluids normal saline at 75 cc/h. Aspiration fall seizure precautions are requested. Ca's catheter was placed. OT consult PT consult case management social worker consult was requested for placement. No Lovenox was initiated because of the possible surgery early in the morning. GI prophylaxis was initiated. Patient is going to be full code. EKG was nonspecific findings. Hemoglobin and renal function is normal. Patient because of the age moderate to high risk for surgery in my opinion. 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 Patient is in pain she is receiving IV morphine sliding scale. As per the orthopedic team requested type and screen was requested and echocardiogram was requested. CMP somehow was canceled this morning plan is to repeat the CMP today. The nurse notified me that potassium is 6.7 we are going to repeat the potassium level again today. Patient is going to be given Kayexalate edema. 04/25/[id number]-kvpw-old female with admitted with history of fall found to have right distal femur periprosthetic fracture. Status post ORIF. PT is working with the patient. OT consult was requested and community planner consult was requested. Plan is to continue the present management. 04/26/[id number]-jdmr-old female admitted with right distal femur fracture status post ORIF day 2. No acute events in the last 24 hours. Physical therapy working with the patient. Social workers are trying to get her replacement. Patient is going to be on nonweightbearing on the right leg. 04/27/[id number]-lvzb-old female admitted with a fall found to have right distal femur fracture status post ORIF day 3. Physical therapy is working with the patient. Nonweightbearing measures implemented for the right leg. Family is expressing desire to for the patient go to [facility]. 04/28/[id number]-aruy-old female admitted with right distal femur fracture status post ORIF day 4. No postop complications. Physical therapy working with the patient. Waiting for placement. (2) Hypothyroidism Is this a current diagnosis for this admission?: No Summary: 04/23/2019-patient has history of hypothyroidism going to check the TSH levels and hold levothyroxine for now once the surgery was done we are going to restart p.o. medications after cleared by the orthopedic since. 04/25/2019-plan is to restart her levothyroxine from today. 04/26/2019-patient has history of hypothyroidism levothyroxine was restarted. 04/28/2019-plan is to continue p.o. levothyroxine during the hospital stay. (3) Fall Is this a current diagnosis for this admission?: Yes Summary: Patient admitted with history of fall found to have right distal femur fracture. (4) CKD (chronic kidney disease) Is this a current diagnosis for this admission?: No Summary: 04/25/2019-patient's family is given the history of CKD yesterday serum creatinine is around 1.26 today it was 0.97. SAURABH resolved. Plan is to continue the IV fluids at 75 cc/h. 04/27/2019-patient creatinine today 0.89 acute kidney injury is resolved. 04/28/2019-patient has history of CKD but the serum creatinine today 0.76 within normal limits. (5) Hypokalemia Is this a current diagnosis for this admission?: Yes Summary: 04/27/2019-patient serum potassium is 3.3 to give 40 mg of p.o. potassium today. 04/28/2019-serum potassium today is 3.8 hypokalemia is resolved. (6) Acute blood loss anemia Is this a current diagnosis for this admission?: Yes Summary: 04/27/2019-patient has acute blood loss anemia hemoglobin dropped to 7 postsurgical status post 2 units of blood transfusion and hemoglobin is 9.9 today. Plan is to recheck the labs tomorrow. 04/28/2019-patient hemoglobin is 9.1 hemoglobin dropped to 7.02 days ago 2 units of blood transfusion given acute blood loss anemia most likely postsurgical. Today's hemoglobin is 9.1 - Additional Information Resuscitation Status: Full Code Discharge Activity: Activity As Tolerated Home Medications: Gabapentin 100 mg PO QHS 04/09/18 Levothyroxine Sodium [Synthroid 0.075 mg Tablet] 0.075 mg PO Q6AM 04/09/18 Diclofenac Sodium [Voltaren] 2 gm TP QIDP PRN 04/23/19 Fesoterodine Fumarate [Toviaz] 8 mg PO DAILY 04/23/19 Ketoconazole 1 applic TP DAILY 04/23/19 Lidocaine/Prilocaine [Lidocaine-Prilocaine Cream] 1 applic TP QHS MDD KNEES 04/23/19 Linaclotide [Linzess] 72 mg PO DAILY 04/23/19 Multivitamin [Tab-A-Carlos (Multiple Vitamin) Tablet] 1 tab PO DAILY 04/23/19 Acetaminophen [Tylenol 325 mg Tablet] 650 mg PO Q4HP PRN tablet 04/28/19 Docusate Sodium [Colace 100 mg Capsule] 100 mg PO BID capsule 04/28/19 Melatonin [Melatonin 1 mg Tablet] 2 mg PO QHS tablet 04/28/19 History of Present Illness Admission Date/PCP: 04/23/19 18:14 ANA FRIEDMAN NP History of Present Illness: MICHAEL ROY is a 89 year old female female with history of hypothyroidism, mild chronic kidney disease, vertigo came to the emergency room after a fall at home. It was accidental fall. The work-up shows right femoral fracture. Dr. Mckayla Reece spoke to the orthopedist and Dr. Francisco and he agreed to see the patient first thing in the morning. Spoke to the patient's for at least half an hour he wants everything to be done and he wants her to be full code. Hospital Course Hospital Course: 89 year old female female with history of hypothyroidism, mild chronic kidney disease, vertigo came to the emergency room after a fall at home. It was accidental fall. The work-up shows right femoral fracture. Dr. Mckayla Reece spoke to the orthopedist and Dr. Francisco and he agreed to see the patient first thing in the morning. Spoke to the patient's for at least half an hour he wants everything to be done and he wants her to be full code. 04/24/[id number]-dudy-old female admitted with history of fall found to have a right distal femur fracture. Hemoglobin dropped to 10.6. The nurse called me to notify that potassium is 6.7 this morning be going to repeat the CMP today. Echocardiogram was requested as per the orthopedic team request. Type and screen was also requested to be controlled 2 units of blood transfusion in case if needed postop basis. PT OT consult was requested case management social worker consult was requested for placement. 04/25/2019- yrs old admitted for fall and rt distal femur periprosthetic fracture s/p ORIF yesterday . hemoglobin dropped to 8.5 and saurabh resolved. 04/26/[id number]-jtyg-old female admitted with history of fall prior to distal femur fracture status post ORIF day 2 no complications. Patient is doing well. Physical therapy consult was requested OT consult was requested case management social worker consult was requested for placement. No acute events in the last 24 hours. Afebrile. 04/27/[id number]-lwgq-old female admitted with history of fall and status post right distal femoral fracture status post ORIF day 3. No complications. Patient received 2 units of blood transfusion hemoglobin is 9.9 today. Potassium is 3.3 which is going to be supplemented. Physical therapy is working with placement patient may most likely go to [facility] in 72 hours. 04/28/[id number]-bqgm-old female admitted with history of fall found to have right distal femur fracture status post ORIF -day 4. Physical therapy is working the patient today. No acute events. Patient is requesting Linzess and Colace today. Physical Exam Vital Signs: Temp Pulse Resp BP Pulse Ox 97.6 F 73 17 147/71 H 92 04/28/19 08:30 04/28/19 08:30 04/28/19 08:30 04/28/19 08:30 04/28/19 08:30 Intake & Output 04/27/19 04/28/19 04/29/19 06:59 06:59 06:59 Intake Total 2313 840 Output Total 722 1450 Balance 1588 -610 Weight 68.1 kg 69.5 kg General appearance: PRESENT: no acute distress Head exam: PRESENT: atraumatic Eye exam: PRESENT: PERRLA Mouth exam: PRESENT: dry mucosa Teeth exam: PRESENT: poor dentation Neck exam: ABSENT: carotid bruit, JVD, lymphadenopathy, thyromegaly Respiratory exam: PRESENT: clear to auscultation terrence. ABSENT: rales, rhonchi, wheezes Cardiovascular exam: PRESENT: RRR. ABSENT: diastolic murmur, rubs, systolic murmur GI/Abdominal exam: PRESENT: normal bowel sounds, soft. ABSENT: distended, guarding, mass, organolmegaly, rebound, tenderness Rectal exam: PRESENT: deferred Extremities exam: PRESENT: full ROM. ABSENT: calf tenderness, clubbing, pedal edema Neurological exam: PRESENT: alert, awake, oriented to person, oriented to place, oriented to time, oriented to situation, CN II-XII grossly intact. ABSENT: motor sensory deficit Psychiatric exam: PRESENT: appropriate affect, normal mood. ABSENT: homicidal ideation, suicidal ideation Results Laboratory Results: 04/28/19 04:43 04/28/19 04:43 04/28/19 04/28/19 04:43 04:43 WBC 6.9 RBC 3.34 L Hgb 9.7 L Hct 28.1 L MCV 84 MCH 29.0 MCHC 34.5 RDW 14.0 Plt Count 160 Seg Neutrophils % 72.2 Lymphocytes % 14.7 Monocytes % 9.7 Eosinophils % 3.0 Basophils % 0.4 Absolute Neutrophils 5.0 Absolute Lymphocytes 1.0 Absolute Monocytes 0.7 Absolute Eosinophils 0.2 Absolute Basophils 0.0 Sodium 139.9 Potassium 3.8 Chloride 109 H Carbon Dioxide 28 Anion Gap 3 L BUN 16 Creatinine 0.76 Est GFR ( Amer) > 60 Est GFR (Non-Af Amer) > 60 Glucose 97 Calcium 8.0 L Magnesium 2.2 Total Bilirubin 0.7 AST 46 H ALT 13 Alkaline Phosphatase 58 Total Protein 4.4 L Albumin 2.2 L 04/23/19 04/23/19 04/23/19 17:22 17:22 17:22 Creatine Kinase 84 CK-MB (CK-2) 1.51 Troponin I < 0.012 Cancelled NT-Pro-B Natriuret Pep 04/24/19 04/24/19 04/24/19 00:19 00:19 06:32 Creatine Kinase 160 H Cancelled CK-MB (CK-2) 3.41 Troponin I < 0.012 NT-Pro-B Natriuret Pep 07/26/19 07/26/19 06:32 09:07 Creatine Kinase 393 H CK-MB (CK-2) 8.27 H Troponin I < 0.012 NT-Pro-B Natriuret Pep 567 H Impressions: Chest X-Ray 04/23/19 00:00 IMPRESSION: No definite acute cardiopulmonary process. Cervical Spine CT 04/23/19 15:32 IMPRESSION: CHRONIC DEGENERATIVE CHANGES. NO ACUTE FINDINGS. Head CT 04/23/19 15:32 IMPRESSION: MILD CHRONIC CHANGES OF ATROPHY AND MICROVASCULAR ISCHEMIA. NO ACUTE PROCESS. EVIDENCE OF ACUTE STROKE: NO. Pelvis X-Ray 04/23/19 15:32 IMPRESSION: NEGATIVE STUDY OF THE PELVIS. Tibia/Fibula X-Ray 04/23/19 15:32 IMPRESSION: NEGATIVE STUDY OF THE RIGHT TIBIA AND FIBULA. NO RADIOGRAPHIC EVIDENCE OF ACUTE INJURY. Lower Extremity CT 04/23/19 17:25 IMPRESSION: Spiral fracture of the femur with distraction and overlap. Isolated nondisplaced anterior distal femoral cortical fracture superior to the prosthesis. Femur X-Ray 04/24/19 00:00 IMPRESSION: IMAGE(S) OBTAINED DURING PROCEDURE. Fluoroscopy 04/24/19 00:00 IMPRESSION: IMAGE(S) OBTAINED DURING PROCEDURE. Transfer Plan - Time Spent with Patient Time spent with patient: Greater than 30 Minutes Qualifiers - * PATIENT BEING DISCHARGED WITH ANY OF THE FOLLOWING DIAGNOSIS: No VTE patient discharged on overlapping Therapy?: No Acute Heart Failure - Is this a Heart Failure Patient?: No
[2019-04-28 14:54] VITALS: BP 169/65
[2019-04-28] MEDS ORDERED: DOCUSATE SODIUM 100 MG CAPSULE PO SCH (18:00)
[2019-04-28] MEDS ORDERED: LIDOCAINE TP SCH (22:00)
[2019-04-28] MEDS ORDERED: PRILOCAINE TP SCH (22:00)
[2019-04-28] MEDS ORDERED: MELATONIN 1 MG TABLET PO SCH (22:00)
[2019-04-28] MEDS ORDERED: GABAPENTIN 100 MG CAPSULE PO SCH (22:00)
== END 2019-04-28 15:34 | DRG 481 ==
LOC: ER 15:11 → EH 18:14 → 3W 22:46
PROVIDERS: ADMIT Internal Medicine; ATTEND Internal Medicine
PROC: 0QSB04Z Reposition Right Lower Femur with Internal Fixation Device, Open Approach (ICD-10-PCS; principal; 2019-04-24 12:00)
PROC: 30233N1 Transfusion of Nonautologous Red Blood Cells into Peripheral Vein, Percutaneous Approach (ICD-10-PCS; 2019-04-26)
DX: S72.401A Unspecified fracture of lower end of right femur, initial encounter for closed fracture (principal); N17.9 Acute kidney failure, unspecified; D62 Acute posthemorrhagic anemia; M97.11XA Periprosthetic fracture around internal prosthetic right knee joint, initial encounter; Z96.651 Presence of right artificial knee joint; E03.9 Hypothyroidism, unspecified; N18.9 Chronic kidney disease, unspecified; E87.6 Hypokalemia; R42 Dizziness and giddiness; W18.30XA Fall on same level, unspecified, initial encounter; Y92.009 Unspecified place in unspecified non-institutional (private) residence as the place of occurrence of the external cause; Z79.899 Other long term (current) drug therapy; Z88.6 Allergy status to analgesic agent; Z88.2 Allergy status to sulfonamides; Z82.49 Family history of ischemic heart disease and other diseases of the circulatory system
CPT/HCPCS: 01360; 36415; 36430; 70450; 71045; 72125; 72170; 80053; 80061; 81001; 82550; 82553; 83036; 83735; 83880; 84132; 84443; 84484; 85025; 85610; 85730; 86850; 86900; 86901; 86920; 93005; 93010; 93306; 96374; 99285; J0171; J0690; J1630; J1650; J2250; J2270; J2370; J2704; J3010; J3490; J7030; J7060; P9016; S0164

== ENCOUNTER 2019-06-09 11:12 | Emergency (ER) | payer MEDICARE ==
[2019-06-09] MEDS ORDERED: NORMAL SALINE 1000 ML 1,000 ML IV ONE (11:17)
--- NOTE | 2019-06-09 11:55 | ER Document Report ---
ED General - General Chief Complaint: General Weakness Stated Complaint: ALTERED MENTAL STATUS Time Seen by Provider: 06/09/19 11:16 Primary Care Provider: ANA FRIEDMAN NP [Primary Care Provider] - Follow up as needed Notes: 89-year-old female woke up this morning very altered. states he is there every morning and she is usually quite active in the morning however she is very somnolent this morning. He tried to get the patient to eat and she really did not want to eat she just wants to sleep intermediate staff reports that the patient did not sleep well last night. No recent fever no cough no shortness of breath no chest pain. No falls no trauma no head injury. states she was doing well yesterday. TRAVEL OUTSIDE OF THE [place] IN LAST 30 DAYS: No - Related Data Allergies/Adverse Reactions: codeine Allergy (Intermediate, Verified 04/30/18 08:55) ITCHING Sulfa (Sulfonamide Antibiotics) Allergy (Intermediate, Verified 04/30/18 08:55) ITCHING Past Medical History - Social History Smoking Status: Never Smoker Frequency of alcohol use: None Drug Abuse: None Family History: Reviewed & Not Pertinent Patient has suicidal ideation: No Patient has homicidal ideation: No - Past Medical History Cardiac Medical History: Denies: Hx Heart Attack, Hx Hypertension Pulmonary Medical History: Denies: Hx Asthma Neurological Medical History: Denies: Hx Cerebrovascular Accident, Hx Seizures Renal/ Medical History: Denies: Hx Peritoneal Dialysis GI Medical History: Denies: Hx Hepatitis, Hx Hiatal Hernia, Hx Ulcer Psychiatric Medical History: Denies: Hx Depression Infectious Medical History: Denies: Hx Hepatitis Past Surgical History: Reports: Hx Orthopedic Surgery. Denies: Hx Mastectomy, Hx Open Heart Surgery, Hx Pacemaker Review of Systems - Review of Systems Constitutional: denies: Chills, Fever Respiratory: denies: Short of breath Gastrointestinal: denies: Diarrhea, Nausea, Vomiting, Constipation Genitourinary: denies: Dysuria, Hematuria Neurological/Psychological: Confusion, Other - Somnolence -: Yes All other systems reviewed and negative Physical Exam - Vital signs Vitals: Resp Pulse Ox 16 93 06/09/19 11:24 06/09/19 11:24 - Notes Notes: GENERAL_APPEARANCE: Chronically ill-appearing, sleeping, cooperative, no_acute_distress, no_obvious_discomfort. VITALS: reviewed, see vital signs table. HEAD: no_swelling\tenderness on the head. EYES: PERRL, EOMI, conjunctiva_clear. NOSE: no_nasal_discharge. MOUTH: Mucous membranes THROAT: no_tonsilar_inflammation, no_airway_obstruction. no_lymphadenopathy NECK: supple, no_neck_tenderness, (-)thyromegaly. BACK: no_back_tenderness. CHEST_WALL: no_chest_tenderness. LUNGS: no_wheezing, no_rales, no_rhonchi, (-)accessory muscle use, good air exchange bilateral. HEART: normal_rate, normal_rhythm, normal_S1, normal_S2, (-)S3, (-)S4, no_murmur, no_rub. ABDOMEN: normal_BS, soft, no_abd_tenderness, (-)guarding, (-)rebound, n o_organomegaly, no_abd_masses. Usable ventral hernia noted EXTREMITIES: good pulses in all_extremities, no_swelling\tenderness in the extremities, no_edema. SKIN: warm, dry, good_color, no_rash. MENTAL_STATUS: Speech is slow, somnolent, NEURO: Nerves II through XII are intact patient withdraws to pain in all 4 extremities Course - Re-evaluation Re-evalutation: 06/09/19 11:55 Elderly female presents with somnolence and altered mental status. We will do a full altered mental status work-up on the patient she has no unilateral motor or sensory deficits are and to suggest stroke. Will CT the brain looking for space-occupying lesions or hemorrhages. Check urine for infection and electrolytes for metabolic abnormalities patient does appear clinically dehydrated we will give her a liter of IV fluids. 06/09/19 16:07 Patient is doing much better. tells me a story that the patient does not sleep well at the intermediate all night. She has a roommate who has a noisy CPAP machine and pain pump. Patient is also had a stroke and yells out all night the staff comes in at night and turns on the lights to clean up that patient keeps her awake and it was particularly severe last night. The patient did not sleep well. He is spoke with the intermediate administration but they have been less than caring according to him. I advised him to go up the chain and he may need to speak with department of Health and Human Services. As far as the patient her labs are normal urine is normal CT scan is normal. She is oxygenating well. She is mentating much better I think she is safe to go home. I do not see an acute emergency medical condition that requires further stabilization or hospitalization. - Vital Signs Vital signs: Temp Pulse Resp BP Pulse Ox 97.5 F 14 101/60 97 06/09/19 11:25 06/09/19 11:25 06/09/19 12:01 06/09/19 12:01 - Laboratory Result Diagrams: 06/09/19 11:35 06/09/19 11:35 Laboratory results interpreted by me: 06/09/19 06/09/19 11:35 11:35 Hgb 11.6 L Hct 35.4 L RDW 14.1 H BUN 31 H Est GFR (MDRD) Non-Af 51 L Total Protein 5.6 L Albumin 3.2 L Discharge - Discharge Clinical Impression: Excessive sleepiness Condition: Good Disposition: HOME, SELF-CARE Instructions: Altered Mental Status ([facility]) Additional Instructions: Please speak with the administrators at the extended care facility. The patient may need to move to another room where there is less commotion at night. This will improve the patient's sleeping situation. Referrals: ANA FRIEDMAN NP [Primary Care Provider] - Follow up as needed
[2019-06-09 12:04] LABS: ABSOLUTE EOSINOPHILS # (AUTO) 0.2 10^3/uL (0.0-0.6); ABSOLUTE LYMPHOCYTES (AUTO) 1.4 10^3/uL (0.5-4.7); ABSOLUTE MONOCYTES (AUTO) 0.3 10^3/uL (0.1-1.4); ABSOLUTE NEUT (AUTO) 2.4 10^3/uL (1.7-8.2); EOSINOPHILS % (AUTO) 4.8 % (0-6); HEMATOCRIT 35.4 % (36.0-47.0); HEMOGLOBIN 11.6 g/dL (12.0-15.5); LYMPHOCYTES % (AUTO) 32.8 % (13-45); MEAN CORPUSCULAR HEMOGLOBIN 28.4 pg (27.0-33.4); MEAN CORPUSCULAR HGB CONC 32.7 g/dL (32.0-36.0); MEAN CORPUSCULAR VOLUME 87 fl (80-97); MONOCYTES % (AUTO) 7.5 % (3-13); PLATELET COUNT 191 10^3/uL (150-450); RED BLOOD COUNT 4.07 10^6/uL (3.72-5.28); RED CELL DISTRIBUTION WIDTH 14.1 % (11.5-14.0); SEGMENTED NEUTROPHILS % (AUTO) 53.9 % (42-78); TOTAL CELLS COUNTED % (AUTO) 100 %; WHITE BLOOD COUNT 4.4 10^3/uL (4.0-10.5)
--- NOTE | 2019-06-09 12:07 | RADIOLOGY REPORT (SQ) ---
EXAM DESCRIPTION: CT HEAD WITHOUT COMPLETED DATE/TIME: 06/09/2019 11:56 am REASON FOR STUDY: AMS COMPARISON: 04/23/2019 TECHNIQUE: Axial images acquired through the brain without intravenous contrast. Images reviewed wi th bone, brain and subdural windows. Additional sagittal and coronal reconstructions were generated. Images stored on PACS. All CT scanners at this facility use dose modulation, iterative reconstruction, and/or weight based d osing when appropriate to reduce radiation dose to as low as reasonably achievable (ALARA). [facility]: Dose Right [facility]: CareDose [facility]: Dose Right [facility]: Teradose 4D [facility]: Slicebooks RADIATION DOSE: CT Rad equipment meets quality standard of care and radiation dose reduction techniq ues were employed. CTDIvol: 53.2 mGy. DLP: 1070 mGy-cm.mGy. LIMITATIONS: None. FINDINGS: VENTRICLES: Prominent. CEREBRUM: No masses. No hemorrhage. No midline shift. Areas of low density in the white matter mos t likely due to chronic micro-vascular ischemic change. No evidence for acute infarction. CEREBELLUM: No masses. No hemorrhage. No alteration of density. No evidence for acute infarction. EXTRAAXIAL SPACES: Age-related involutional change. No fluid collections. No masses. ORBITS AND GLOBE: No intra- or extraconal masses. Normal contour of globe without masses. CALVARIUM: No fracture. PARANASAL SINUSES: No fluid or mucosal thickening. SOFT TISSUES: No mass or hematoma. OTHER: No other significant finding. IMPRESSION: CHRONIC CHANGES OF ATROPHY AND MICROVASCULAR ISCHEMIA. NO ACUTE PROCESS. EVIDENCE OF ACUTE STROKE: NO. TECHNICAL DOCUMENTATION: JOB ID: [id number] Quality ID # [id number]: Final reports with documentation of one or more dose reduction techniques (e.g., Au tomated exposure control, adjustment of the mA and/or kV according to patient size, use of iterative reconstruction technique) 2010 [employer]- All Rights Reserved Reading location - IP/workstation name: [email or web address]
--- NOTE | 2019-06-09 12:10 | RADIOLOGY REPORT (SQ) ---
EXAM DESCRIPTION: CHEST SINGLE VIEW COMPLETED DATE/TIME: 06/09/2019 12:03 pm REASON FOR STUDY: AMS COMPARISON: 04/23/2019 NUMBER OF VIEWS: One view. TECHNIQUE: Single frontal radiographic image of the chest acquired. LIMITATIONS: None. FINDINGS: LUNGS AND PLEURA: Stable appearance. MEDIASTINUM AND HILAR STRUCTURES: Stable heart size and mediastinal structures. HEART AND VASCULAR STRUCTURES: Stable appearance. SUPPORT DEVICES: Appropriate location without change. BONES: No acute findings. OTHER: No other significant finding. IMPRESSION: STABLE APPEARANCE OF THE CHEST. SUPPORT DEVICES UNCHANGED. TECHNICAL DOCUMENTATION: JOB ID: [id number] [employer]- All Rights Reserved Reading location - IP/workstation name: [email or web address]
[2019-06-09 12:21] LABS: ALBUMIN 3.2 g/dL (3.5-5.0); ALKALINE PHOSPHATASE 104 U/L (38-126); ANION GAP 6 (5-19); ASPARTATE AMINO TRANSFERASE 21 U/L (14-36); BILIRUBIN,DIRECT 0.1 mg/dL (0.0-0.4); BILIRUBIN,TOTAL 0.3 mg/dL (0.2-1.3); BLOOD UREA NITROGEN 31 mg/dL (7-20); CALCIUM 9.2 mg/dL (8.4-10.2); CARBON DIOXIDE 28 mmol/L (22-30); CHLORIDE 103 mmol/L (98-107); CREATINE KINASE 36 U/L (30-135); GLUCOSE 100 mg/dL (75-110); POTASSIUM 4.4 mmol/L (3.6-5.0); TOTAL PROTEIN 5.6 g/dL (6.3-8.2)
[2019-06-09] MEDS ORDERED: ACETAMINOPHEN SOLN 325 MG/10.15 ML UDCUP PO ONE (13:13)
[2019-06-09 14:50] LABS: APPEARANCE,URINE CLEAR; BILIRUBIN,URINE NEGATIVE (NEGATIVE); COLOR,URINE YELLOW; GLUCOSE, URINE NEGATIVE (NEGATIVE); KETONES,URINE NEGATIVE (NEGATIVE); LEUKOCYTE ESTERASE,URINE NEGATIVE (NEGATIVE); NITRITE,URINE NEGATIVE (NEGATIVE); PROTEIN,URINE NEGATIVE (NEGATIVE); URINE SPECIFIC GRAVITY 1.017; UROBILINOGEN,URINE NEGATIVE mg/dL (<2.0)
[2019-06-09 18:22] VITALS: BP 144/52
--- NOTE | 2019-06-09 20:53 | EKG REPORT ---
SEVERITY:- ABNORMAL ECG - SINUS RHYTHM PROBABLE INFERIOR INFARCT, AGE INDETERMINATE : Confirmed by: Lisa Patricio MD 09-Jun-2019 20:53:01
== END 2019-06-09 18:38 | disposition home or self-care (01) ==
LOC: ER 11:12
DX: R40.0 Somnolence (principal); R41.0 Disorientation, unspecified; Z88.5 Allergy status to narcotic agent; Z88.2 Allergy status to sulfonamides
CPT/HCPCS: 93005; 36415; 82550; 85025; 80053; 81001; 84484; 71045; 70450; 93010; J7030; J3490; 99285

== ENCOUNTER → 2020-03-23 | Outpatient (CLI) | payer MEDICARE ==
[2020-03-23 15:09] LABS: HEMATOCRIT 36.6 % (36.0-47.0); HEMOGLOBIN 12.6 g/dL (12.0-15.5); MEAN CORPUSCULAR HEMOGLOBIN 29.2 pg (27.0-33.4); MEAN CORPUSCULAR HGB CONC 34.3 g/dL (32.0-36.0); MEAN CORPUSCULAR VOLUME 85 fl (80-97); PLATELET COUNT 224 10^3/uL (150-450); RED CELL DISTRIBUTION WIDTH 15.5 % (11.5-14.0); WHITE BLOOD COUNT 5.7 10^3/uL (4.0-10.5)
[2020-03-23 15:15] LABS: INTERNATIONAL RATION (INR) 1.05; PROTHROMBIN TIME 13.7 SEC (11.4-15.4)
[2020-03-23 15:46] LABS: ABSOLUTE LYMPHOCYTES# (MANUAL) 0.9 10^3/uL (0.5-4.7); ABSOLUTE MONOCYTES # (MANUAL) 0.7 10^3/uL (0.1-1.4); BASOPHILS % (MANUAL) 1 % (0-2); EOSINOPHILS % (MANUAL) 5 % (0-6); LYMPHOCYTES % (MANUAL) 16 % (13-45); MONOCYTES % (MANUAL) 12 % (3-13); SEGMENTED NEUTROPHILS % (MAN) 66 % (42-78); TOTAL CELLS COUNTED 100
[2020-03-23 15:47] LABS: ANISOCYTOSIS SLIGHT
[2020-03-23 15:48] LABS: PLATELET COMMENT ADEQUATE
[2020-03-23 16:23] LABS: ALBUMIN 3.5 g/dL (3.5-5.0); ALKALINE PHOSPHATASE 665 U/L (38-126); AMYLASE 92 U/L (30-110); ANION GAP 9 (5-19); ASPARTATE AMINO TRANSFERASE 220 U/L (14-36); BILIRUBIN,DIRECT 6.7 mg/dL (0.0-0.4); BILIRUBIN,TOTAL 7.9 mg/dL (0.2-1.3); BLOOD UREA NITROGEN 22 mg/dL (7-20); CALCIUM 9.2 mg/dL (8.4-10.2); CARBON DIOXIDE 24 mmol/L (22-30); CHLORIDE 99 mmol/L (98-107); GLUCOSE 142 mg/dL (75-110); POTASSIUM 4.7 mmol/L (3.6-5.0); TOTAL PROTEIN 6.4 g/dL (6.3-8.2)
== END ==
LOC: OD 14:03
PROVIDERS: ATTEND Nurse Practitioner
DX: R17 Unspecified jaundice (principal)
CPT/HCPCS: 36415; 80053; 82150; 83690; 85025; 85610

== ENCOUNTER 2020-03-24 10:21 | Emergency (ER) | payer MEDICARE ==
--- NOTE | 2020-03-24 11:51 | ER Document Report ---
ED Medical Screen (RME) - General Chief Complaint: Abnormal Lab Results Stated Complaint: ABNORMAL LABS Primary Care Provider: ANA FRIEDMAN NP [Primary Care Provider] - Follow up as needed Notes: This 89-year-old female presents to the emergency room today stating that she was at the diagnostic center yesterday they did labs and told her she had a liver blockage she does present with jaundice. TRAVEL OUTSIDE OF THE [place] IN LAST 30 DAYS: No - Related Data Allergies/Adverse Reactions: codeine Allergy (Intermediate, Verified 04/30/18 08:55) ITCHING Sulfa (Sulfonamide Antibiotics) Allergy (Intermediate, Verified 04/30/18 08:55) ITCHING Home Medications: gabapentin, lynzess, synthroid, Past Medical History - Social History Chew tobacco use (# tins/day): No Frequency of alcohol use: None Drug Abuse: None - Past Medical History Cardiac Medical History: Denies: Hx Heart Attack, Hx Hypertension Pulmonary Medical History: Denies: Hx Asthma Neurological Medical History: Denies: Hx Cerebrovascular Accident, Hx Seizures Renal/ Medical History: Denies: Hx Peritoneal Dialysis GI Medical History: Denies: Hx Hepatitis, Hx Hiatal Hernia, Hx Ulcer Psychiatric Medical History: Denies: Hx Depression Infectious Medical History: Denies: Hx Hepatitis Past Surgical History: Reports: Hx Orthopedic Surgery. Denies: Hx Mastectomy, Hx Open Heart Surgery, Hx Pacemaker Physical Exam - Vital signs Vitals: Temp Pulse Resp BP Pulse Ox 98.9 F 61 14 121/62 98 03/24/20 10:36 03/24/20 10:36 03/24/20 10:36 03/24/20 10:36 03/24/20 10:36 Course - Vital Signs Vital signs: Temp Pulse Resp BP Pulse Ox 98.9 F 61 14 121/62 98 03/24/20 11:40 03/24/20 10:36 03/24/20 10:36 03/24/20 10:36 03/24/20 10:36 Doctor's Discharge - Discharge Referrals: ANA FRIEDMAN NP [Primary Care Provider] - Follow up as needed
[2020-03-24 12:30] LABS: HEMATOCRIT 38.3 % (36.0-47.0); HEMOGLOBIN 12.8 g/dL (12.0-15.5); MEAN CORPUSCULAR HEMOGLOBIN 28.9 pg (27.0-33.4); MEAN CORPUSCULAR HGB CONC 33.4 g/dL (32.0-36.0); MEAN CORPUSCULAR VOLUME 86 fl (80-97); PLATELET COUNT 238 10^3/uL (150-450); RED BLOOD COUNT 4.44 10^6/uL (3.72-5.28); RED CELL DISTRIBUTION WIDTH 15.8 % (11.5-14.0); WHITE BLOOD COUNT 5.8 10^3/uL (4.0-10.5)
[2020-03-24 12:34] LABS: APPEARANCE,URINE CLEAR; BILIRUBIN,URINE NEGATIVE (NEGATIVE); GLUCOSE, URINE NEGATIVE (NEGATIVE); KETONES,URINE NEGATIVE (NEGATIVE); LEUKOCYTE ESTERASE,URINE NEGATIVE (NEGATIVE); NITRITE,URINE NEGATIVE (NEGATIVE); PROTEIN,URINE NEGATIVE (NEGATIVE); URINE SPECIFIC GRAVITY 1.006; UROBILINOGEN,URINE NEGATIVE mg/dL (<2.0)
[2020-03-24 12:35] LABS: COLOR,URINE DARK YELLOW
[2020-03-24 12:49] LABS: ALBUMIN 3.8 g/dL (3.5-5.0); ALKALINE PHOSPHATASE 747 U/L (38-126); ANION GAP 8 (5-19); ASPARTATE AMINO TRANSFERASE 216 U/L (14-36); BILIRUBIN,DIRECT 7.4 mg/dL (0.0-0.4); BILIRUBIN,TOTAL 8.8 mg/dL (0.2-1.3); BLOOD UREA NITROGEN 24 mg/dL (7-20); CALCIUM 9.4 mg/dL (8.4-10.2); CARBON DIOXIDE 24 mmol/L (22-30); CHLORIDE 103 mmol/L (98-107); GLUCOSE 107 mg/dL (75-110); POTASSIUM 4.6 mmol/L (3.6-5.0); TOTAL PROTEIN 6.7 g/dL (6.3-8.2)
[2020-03-24 12:55] LABS: ABSOLUTE LYMPHOCYTES# (MANUAL) 0.8 10^3/uL (0.5-4.7); ABSOLUTE MONOCYTES # (MANUAL) 0.6 10^3/uL (0.1-1.4); BASOPHILS % (MANUAL) 1 % (0-2); EOSINOPHILS % (MANUAL) 3 % (0-6); LYMPHOCYTES % (MANUAL) 14 % (13-45); MONOCYTES % (MANUAL) 10 % (3-13); SEGMENTED NEUTROPHILS % (MAN) 72 % (42-78); TOTAL CELLS COUNTED 100
[2020-03-24 12:57] LABS: HYPOCHROMASIA SLIGHT; PLATELET COMMENT ADEQUATE; POIKILOCYTOSIS SLIGHT; TARGET CELLS SLIGHT; TOXIC VACUOLATION PRESENT
[2020-03-24] MEDS ORDERED: NORMAL SALINE 1000 ML 1,000 ML IV ONE (14:01)
[2020-03-24] MEDS ORDERED: DIPHENHYDRAMINE HCL 50 MG/ML VIAL IV ONE ×2 (14:01→20:09)
--- NOTE | 2020-03-24 14:06 | ER Document Report ---
ED General - General Chief Complaint: Abnormal Lab Results Stated Complaint: ABNORMAL LABS Primary Care Provider: ANA FRIEDMAN NP [Primary Care Provider] - Follow up as needed Notes: Patient is an 89-year-old white female with a history of arthritis, hypothyroidism and CKD which they report has been resolving who was seen by her orthopedist earlier in the week for cortisone injections and while at the office they report the orthopedist noted she appeared to be slightly yellow. He recommended to take her to the primary care doctor. The patient's reports that the jaundice worsened about 2 days ago. He states they took her y day to an outpatient diagnostic center to have lab work done which showed elevated liver enzymes and they recommended the patient come to the emergency department. The patient denies any abdominal pain or fever. She states that she feels "itchy internally". The notes that she had diarrhea about 2 days ago, but it has since ceased. She denies any constipation. 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 TRAVEL OUTSIDE OF THE [place] IN LAST 30 DAYS: No - Related Data Allergies/Adverse Reactions: codeine Allergy (Intermediate, Verified 04/30/18 08:55) ITCHING Sulfa (Sulfonamide Antibiotics) Allergy (Intermediate, Verified 04/30/18 08:55) ITCHING Home Medications: gabapentin, lynzess, synthroid, Past Medical History - Social History Smoking Status: Never Smoker Chew tobacco use (# tins/day): No Frequency of alcohol use: None Drug Abuse: None Family History: Reviewed & Not Pertinent Patient has homicidal ideation: No - Past Medical History Cardiac Medical History: Denies: Hx Heart Attack, Hx Hypertension Pulmonary Medical History: Denies: Hx Asthma Neurological Medical History: Denies: Hx Cerebrovascular Accident, Hx Seizures Renal/ Medical History: Denies: Hx Peritoneal Dialysis GI Medical History: Denies: Hx Hepatitis, Hx Hiatal Hernia, Hx Ulcer Psychiatric Medical History: Denies: Hx Depression Infectious Medical History: Denies: Hx Hepatitis Past Surgical History: Reports: Hx Orthopedic Surgery. Denies: Hx Mastectomy, Hx Open Heart Surgery, Hx Pacemaker Review of Systems - Review of Systems EENT: Other - Icterus Skin: Change in color -: Yes All other systems reviewed and negative Physical Exam - Vital signs Vitals: Temp Pulse Resp BP Pulse Ox 98.9 F 61 14 121/62 98 03/24/20 10:36 06/25/20 10:36 03/24/20 10:36 03/24/20 10:36 03/24/20 10:36 - General General appearance: Alert In distress: None - HEENT Head: Normocephalic, Atraumatic Eyes: Scleral icterus Extraocular movements intact: Yes Pupils: PERRL Mucous membranes: Dry Neck: Supple - Respiratory Respiratory status: No respiratory distress Chest status: Nontender Breath sounds: Normal Chest palpation: Normal - Cardiovascular Rhythm: Regular Heart sounds: Normal auscultation - Abdominal Distension: No distension Bowel sounds: Normal Tenderness: Nontender Organomegaly: Other - No palpable mass or organomegaly - Extremities General upper extremity: Normal inspection, Nontender, Normal color, Normal ROM, Normal temperature General lower extremity: Normal inspection, Nontender, Normal color, Normal ROM, Normal temperature. No: Deshaun's sign - Neurological Neuro grossly intact: Yes Cognition: Normal Orientation: AAOx4 Sunshine Coma Scale Eye Opening: Spontaneous Arpan Coma Scale Verbal: Oriented Sunshine Coma Scale Motor: Obeys Commands Sunshine Coma Scale Total: 15 Speech: Normal Sensory: Normal - Psychological Associated symptoms: Normal affect, Normal mood - Skin Skin Temperature: Warm Skin Moisture: Dry Skin Color: Normal Course - Re-evaluation Re-evalutation: 03/24/20 19:[address] Ortiz who advised patient requires transfer for definitive care. 03/24/20 19:23 I called and spoke with [facility], the patient's preference hospital, they advised they did not have coverage for ERCP at this time. Their next preference is [facility] which I have called, they are on regional management meaning they have no general hospital medicine beds. They do have some capacity to accept specialists transfers. They will consult with GI regarding this patient and her need for ERCP and transfer and get back with me. 03/24/20 19:55 : Spoke with [facility] in [place], they advised they do not have any general medical beds to accept the patient to the hospitalist service for GI consult and subsequent ERCP. I spoke with the family and at this point they would like to try [facility] in [place]. We will call. 03/24/20 23:09 The transfer center spoke with the GI fellow who agreed to consult on the patient wants transferred to the hospitalist service there. I spoke with Dr. Obi, hospitalist who will agree to accept the patient in transfer to their facility for further care and ERCP. Patient is stable at this time. We are awaiting bed assignment for transfer. Patient will continue to be monitored. - Vital Signs Vital signs: Temp Pulse Resp BP Pulse Ox 98.9 F 61 14 121/62 98 03/24/20 11:40 03/24/20 10:36 03/24/20 10:36 03/24/20 10:36 03/24/20 10:36 - Laboratory Result Diagrams: 03/24/20 12:10 03/24/20 12:10 Laboratory results interpreted by me: 03/24/20 03/24/20 03/24/20 12:10 12:10 12:10 RDW 15.8 H Sodium 134.9 L BUN 24 H Total Bilirubin 8.8 H Direct Bilirubin 7.4 H AST 216 H ALT 496 H Alkaline Phosphatase 747 H Ammonia < 8.7 L Urine Ascorbic Acid Acetaminophen 03/24/20 03/24/20 03/24/20 12:10 12:10 14:43 RDW Sodium BUN Total Bilirubin Direct Bilirubin AST ALT Alkaline Phosphatase Ammonia < 8.7 L Urine Ascorbic Acid 40 H Acetaminophen < 10 L Discharge - Discharge Clinical Impression: Cholangitis Cholelithiases Qualifiers: Cholelithiasis location: other site Biliary obstruction: with biliary obstruction Qualified Code(s): K80.81 - Other cholelithiasis with obstruction Condition: Stable Disposition: [facility] [place] Referrals: ANA FRIEDMAN NP [Primary Care Provider] - Follow up as needed
--- NOTE | 2020-03-24 15:47 | RADIOLOGY REPORT (SQ) ---
EXAM DESCRIPTION: CHEST SINGLE VIEW IMAGES COMPLETED DATE/TIME: 03/24/2020 3:32 pm REASON FOR STUDY: jaundice COMPARISON: 06/09/2019 EXAM PARAMETERS: NUMBER OF VIEWS: One view. TECHNIQUE: Single frontal radiographic view of the chest acquired. RADIATION DOSE: NA LIMITATIONS: Patient positioning obscures evaluation of the apical lungs FINDINGS: LUNGS AND PLEURA: Stable pulmonary exam. No new focal consolidation, large pleural effusi on, or pneumothorax demonstrated MEDIASTINUM AND HILAR STRUCTURES: No masses. Contour stable. HEART AND VASCULAR STRUCTURES: Heart normal in size. Normal vasculature. BONES: No acute findings. HARDWARE: None in the chest. OTHER: No other significant finding. IMPRESSION: Patient positioning results in nonvisualization of the apical lungs. No evidence of acu te cardiopulmonary abnormality. TECHNICAL DOCUMENTATION: JOB ID: [id number] 2010 [employer]- All Rights Reserved Reading location - IP/workstation name: [email or web address]
--- NOTE | 2020-03-24 17:53 | RADIOLOGY REPORT (SQ) ---
EXAM DESCRIPTION: U/S ABDOMEN LTD W/DOPPLER IMAGES COMPLETED DATE/TIME: 03/24/2020 5:41 pm REASON FOR STUDY: RUQ, jaundiced COMPARISON: None. TECHNIQUE: Dynamic and static grayscale images acquired of the abdomen and recorded on PACS. Additio nal selected color Doppler and spectral images recorded. LIMITATIONS: Lack of patient mobility. Bowel gas. FINDINGS: PANCREAS: No masses. Visualized pancreatic duct normal caliber. LIVER: Heterogeneous echotexture. Dilated intrahepatic ducts. Hepatomegaly. LIVER VASCULATURE: Normal directional flow of the main portal vein and hepatic veins. GALLBLADDER: Multiple stones. The largest 2.9 cm. No wall thickening. No pericholecystic fluid. ULTRASOUND-DETECTED PRINCE'S SIGN: Negative. INTRAHEPATIC DUCTS AND COMMON DUCT: Common bile duct is mildly dilated at 8 mm. Intrahepatic ducts a re dilated also. AORTA: No aneurysm. RIGHT KIDNEY: Small, 8.7 cm. Normal echogenicity. No solid or suspicious masses. No hydronephrosis. No calcifications. PERITONEAL AND RIGHT PLEURAL SPACE: No ascites or effusions. OTHER: No other significant findings. IMPRESSION: Limited study. Hepatomegaly. Dilated intrahepatic and extrahepatic ducts. Correlate f or biliary obstruction. Cholelithiasis. No evidence of cholecystitis. TECHNICAL DOCUMENTATION: JOB ID: [id number] 2010 [employer]- All Rights Reserved Reading location - IP/workstation name: [email or web address]
--- NOTE | 2020-03-24 18:57 | RADIOLOGY REPORT (SQ) ---
EXAM DESCRIPTION: CT ABD/PELVIS NO ORAL OR IV IMAGES COMPLETED DATE/TIME: 03/24/2020 6:27 pm REASON FOR STUDY: RUQ biliary obstruction? COMPARISON: None. TECHNIQUE: CT scan of the abdomen and pelvis performed without intravenous or oral contrast. Images reviewed with lung, soft tissue, and bone windows. Reconstructed coronal and sagittal MPR images revi ewed. All images stored on PACS. All CT scanners at this facility use dose modulation, iterative reconstruction, and/or weight based d osing when appropriate to reduce radiation dose to as low as reasonably achievable (ALARA). [facility]: Dose Right [facility]: CareDose [facility]: Dose Right [facility]: Teradose 4D [facility]: Smart [email or web address] RADIATION DOSE: CT Rad equipment meets quality standard of care and radiation dose reduction techniq ues were employed. CTDIvol: 11.5 mGy. DLP: 558 mGy-cm.mGy. LIMITATIONS: None. FINDINGS: LOWER CHEST: No significant findings. No nodules or infiltrates. NON-CONTRASTED LIVER, SPLEEN, ADRENALS: There are dilated intrahepatic ducts. No hepatic mass. PANCREAS: No masses. No peripancreatic inflammatory changes. GALLBLADDER: Gallbladder is distended. It appears to contain some poorly calcified gallstones. RIGHT KIDNEY AND URETER: No suspicious masses. Assessment limited by lack of IV contrast. No signif icant calcifications. No hydronephrosis or hydroureter. LEFT KIDNEY AND URETER: No suspicious masses. Assessment limited by lack of IV contrast. No signifi cant calcifications. No hydronephrosis or hydroureter. AORTA AND RETROPERITONEUM: The aorta is normal in caliber. Stent grafts are seen in the iliac arteri es. BOWEL AND PERITONEAL CAVITY: No obvious masses or inflammatory changes. Considerable retained stool. APPENDIX: Surgically absent. PELVIS, BLADDER, AND ABDOMINAL WALL:No abnormal masses. No free fluid. Bladder normal. BONES: No significant findings. OTHER: No other significant finding. IMPRESSION: It appears that the gallbladder is distended and contains some poorly calcified gallston es. There are dilated intrahepatic ducts. The common bile duct is mildly dilated. Constipation is seen. COMMENT: Quality ID # [id number]: Final reports with documentation of one or more dose reduction techniques (e.g., Automated exposure control, adjustment of the mA and/or kV according to patient size, use of iterative reconstruction technique) TECHNICAL DOCUMENTATION: JOB ID: [id number] [employer]- All Rights Reserved Reading location - IP/workstation name: [email or web address]
[2020-03-24] MEDS ORDERED: PIPERACILLIN/TAZOBACTAM 3.375 GM VIAL IV ONE (19:21)
[2020-03-24] MEDS ORDERED: GABAPENTIN 300 MG CAPSULE PO ONE (23:16)
[2020-03-24] MEDS ORDERED: MELATONIN 1 MG TABLET PO SCH (23:30)
[2020-03-25] MEDS ORDERED: DIPHENHYDRAMINE HCL 50 MG/ML VIAL IV ONE (00:52)
[2020-03-25] MEDS ORDERED: NORMAL SALINE 1000 ML 1,000 ML IV ONE (00:57)
[2020-03-25] MEDS ORDERED: PIPERACILLIN/TAZOBACTAM 3.375 GM VIAL IV SCH (08:30)
[2020-03-25] MEDS ORDERED: GABAPENTIN 100 MG CAPSULE PO ONE (08:50)
[2020-03-25 09:20] LABS: HEMATOCRIT 33.6 % (36.0-47.0); HEMOGLOBIN 11.5 g/dL (12.0-15.5); MEAN CORPUSCULAR HEMOGLOBIN 29.4 pg (27.0-33.4); MEAN CORPUSCULAR HGB CONC 34.4 g/dL (32.0-36.0); MEAN CORPUSCULAR VOLUME 86 fl (80-97); PLATELET COUNT 227 10^3/uL (150-450); RED BLOOD COUNT 3.92 10^6/uL (3.72-5.28); RED CELL DISTRIBUTION WIDTH 15.8 % (11.5-14.0)
[2020-03-25 09:37] LABS: ABSOLUTE LYMPHOCYTES# (MANUAL) 0.9 10^3/uL (0.5-4.7); ABSOLUTE MONOCYTES # (MANUAL) 0.3 10^3/uL (0.1-1.4); ALBUMIN 3.2 g/dL (3.5-5.0); ALKALINE PHOSPHATASE 688 U/L (38-126); ANION GAP 6 (5-19); ANISOCYTOSIS SLIGHT; ASPARTATE AMINO TRANSFERASE 177 U/L (14-36); BASOPHILS % (MANUAL) 0 % (0-2); BILIRUBIN,DIRECT 8.5 mg/dL (0.0-0.4); BILIRUBIN,TOTAL 9.7 mg/dL (0.2-1.3); BLOOD UREA NITROGEN 18 mg/dL (7-20); CALCIUM 9.2 mg/dL (8.4-10.2); CARBON DIOXIDE 23 mmol/L (22-30); CHLORIDE 109 mmol/L (98-107); EOSINOPHILS % (MANUAL) 2 % (0-6); GLUCOSE 95 mg/dL (75-110); LYMPHOCYTES % (MANUAL) 15 % (13-45); MONOCYTES % (MANUAL) 5 % (3-13); PLATELET COMMENT ADEQUATE; POTASSIUM 4.6 mmol/L (3.6-5.0); SEGMENTED NEUTROPHILS % (MAN) 78 % (42-78); TOTAL CELLS COUNTED 100; TOTAL PROTEIN 6.1 g/dL (6.3-8.2)
[2020-03-25 09:38] LABS: HYPOCHROMASIA SLIGHT; POIKILOCYTOSIS SLIGHT; TARGET CELLS SLIGHT
[2020-03-25] MEDS: LEVOTHYROXINE SODIUM 0.075 MG TABLET PO SCH ×2 (10:17→20:53)
--- NOTE | 2020-03-25 10:35 | ER Document Report ---
Doctor's Note Notes: 03/25/20 10:34 Patient at this time only complains of pruritus. Patient without any complaints of nausea or abdominal pain. Call placed to [facility], they have an extended wait list of over 23 patients at this time. Call [facility] placed to [facility] center for consultation for transfer. Awaiting return call from hospitalist at this time. 03/25/20 10:[address] Wolf at [facility], they are currently at capacity and are not able to accept transfers at this time. He does recommend calling the facility daily to check on the status. Call placed to hospitalist Dr. Palmer who does agree to come and evaluate patient as she is currently been held for 24 hours awaiting transfer. Patient is still currently on the list to be transferred to [facility]. 03/25/20 18:00 Patient does have a room assignment, patient updated regarding her transfer status at this time. Vital signs continue table, patient declines pain symptoms. Patient continues very jaundiced at this time. 03/25/20 20:26 Report and handoff given to checking Juan F MARSH
[2020-03-25] MEDS ORDERED: ASPIRIN 325 MG TABLET PO ONE (12:09)
--- NOTE | 2020-03-25 14:07 | PDOC CONSULTATION ---
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 As per patient she has an appointment with her orthopedic surgeon for some knee injection and her doctor noticed that she was looking yellow, patient was sent to see her PCP for further evaluation, patient had some blood work done and was told to come to the ED. Patient is stating that except for mild abdominal distention and mild right upper quadrant abdominal pain and diarrhea she has had no other symptoms. She denies any nausea, vomiting, fever, chills, shortness of breath or any chest pain. In ED she was noted to have elevated T bili, AST, ALT and alkaline phosphatase. CT abdomen showed distended gallbladder with calcified gallstones and dilated intrahepatic and common bile duct. Patient needs ERCP which unfortunately we do not do in [facility] and patient is arranged to be transferred to [facility] for ERCP however she is on the waiting list and hospitalist was consulted for medical management while patient pending transfer. Past Medical History Cardiac Medical History: Denies: Myocardial Infarction, Hypertension Pulmonary Medical History: Denies: Asthma Neurological Medical History: Denies: Seizures GI Medical History: Denies: Hepatitis, Hiatal Hernia Psychiatric Medical History: Denies: Depression Hematology: Reports: Anemia - IRON INFUSIONS/D/C'D Denies: Sickle Cell Disease Past Surgical History Past Surgical History: Reports: Orthopedic Surgery Denies: Amputation, Mastectomy, Pacemaker Social History Smoking Status: Never Smoker Electronic Cigarette use?: No Frequency of Alcohol Use: None Hx Recreational Drug Use: No Drugs: None Hx Prescription Drug Abuse: No Family History Family History: Reviewed & Not Pertinent Parental Family History Reviewed: Yes Children Family History Reviewed: Yes Sibling(s) Family History Reviewed.: Yes Medication/Allergy Home Medications: Gabapentin 100 mg PO Q8 MDD 600 mg 04/09/18 Levothyroxine Sodium [Synthroid 0.075 mg Tablet] 0.075 mg PO Q6AM 04/09/18 Diclofenac Sodium [Voltaren] 2 gm TP QIDP PRN 04/23/19 Linaclotide [Linzess] 72 mg PO DAILY 04/23/19 Multivitamin [Tab-A-Carlos (Multiple Vitamin) Tablet] 1 tab PO DAILY 04/23/19 Melatonin [Melatonin 1 mg Tablet] 2 mg PO QHS tablet 04/28/19 Famotidine [Pepcid 20 mg Tablet] 20 mg PO DAILY 03/24/20 Fluticasone Propionate [Flonase Nasal [place] 50 Mcg/[place] 16 gm] 1 spray NASL DAILY 03/24/20 Allergies/Adverse Reactions: codeine Allergy (Intermediate, Verified 04/30/18 08:55) ITCHING Sulfa (Sulfonamide Antibiotics) Allergy (Intermediate, Verified 04/30/18 08:55) ITCHING Review of Systems Review of Systems: as per hpi Physical Exam Vital Signs: Temp Pulse Resp BP Pulse Ox 98.1 F 61 12 139/58 H 99 03/25/20 12:50 03/24/20 10:36 03/25/20 05:01 03/25/20 05:00 03/25/20 05:01 Intake & Output 03/24/20 03/25/20 03/26/20 06:59 06:59 06:59 Intake Total 1000 Balance 1000 Weight 65.9 kg General appearance: PRESENT: no acute distress, well-developed, well-nourished, other - Jaundiced Eye exam: PRESENT: scleral icterus Respiratory exam: PRESENT: clear to auscultation terrence. ABSENT: rales, rhonchi, wheezes Cardiovascular exam: PRESENT: RRR. ABSENT: diastolic murmur, rubs, systolic murmur Pulses: PRESENT: normal dorsalis pedis pul GI/Abdominal exam: PRESENT: normal bowel sounds, soft, tenderness - Right upper quadrant. ABSENT: distended, guarding, mass, organolmegaly, rebound Extremities exam: PRESENT: full ROM. ABSENT: calf tenderness, clubbing, pedal edema Musculoskeletal exam: PRESENT: other - Severe bilateral upper and lower extremi ty osteoarthritis. Neurological exam: PRESENT: alert, awake, oriented to person, oriented to place, oriented to time, oriented to situation, CN II-XII grossly intact. ABSENT: motor sensory deficit Skin exam: PRESENT: jaundice Results Laboratory Results: 03/25/20 09:00 03/25/20 09:00 03/24/20 03/24/20 03/25/20 14:43 17:30 09:00 WBC 6.0 RBC 3.92 Hgb 11.5 L Hct 33.6 L MCV 86 MCH 29.4 MCHC 34.4 RDW 15.8 H Plt Count 227 Seg Neutrophils % Not Reportable Sodium Potassium Chloride Carbon Dioxide Anion Gap BUN Creatinine Est GFR ( Amer) Glucose Lactic Acid 0.7 Calcium Total Bilirubin AST Alkaline Phosphatase Ammonia < 8.7 L Total Protein Albumin 03/25/20 09:00 WBC RBC Hgb Hct MCV MCH MCHC RDW Plt Count Seg Neutrophils % Sodium 138.2 Potassium 4.6 Chloride 109 H Carbon Dioxide 23 Anion Gap 6 BUN 18 Creatinine 0.74 Est GFR ( Amer) > 60 Glucose 95 Lactic Acid Calcium 9.2 Total Bilirubin 9.7 H AST 177 H Alkaline Phosphatase 688 H Ammonia Total Protein 6.1 L Albumin 3.2 L Impressions: Abdomen Ultrasound 03/24/20 14:01 IMPRESSION: Limited study. Hepatomegaly. Dilated intrahepatic and extrahepatic ducts. Correlate for biliary obstruction. Cholelithiasis. No evidence of cholecystitis. Chest X-Ray 03/24/20 15:00 IMPRESSION: Patient positioning results in nonvisualization of the apical lungs. No evidence of acute cardiopulmonary abnormality. Abdomen/Pelvis CT 03/24/20 18:00 IMPRESSION: It appears that the gallbladder is distended and contains some poorly calcified gallstones. There are dilated intrahepatic ducts. The common bile duct is mildly dilated. Constipation is seen. Assessment and Plan - Diagnosis (1) Obstructive jaundice Is this a current diagnosis for this admission?: Yes Plan: Due to cholelithiasis. Patient has minimal abdominal pain and distention. Darden sign is negative. Denies any diarrhea or vomiting or fever. T bili 9.7, direct bili 8.5, AST 216, ALT 496, alk phos 747. Patient needs ERCP which unfortunately cannot be done at [facility] and ED physician has arranged for patient to be transferred to tertiary care center. Patient is pending transfer. Meanwhile will continue empiric IV antibiotics, antibiotics, will monitor volume status and electrolytes, will replace electrolytes as needed. (2) Cholelithiases Qualifiers: Cholelithiasis location: gallbladder and bile duct Cholecystitis acuity: unspecified acuity Biliary obstruction: with biliary obstruction Qualified Code(s): K80.81 - Other cholelithiasis with obstruction Is this a current diagnosis for this admission?: Yes Plan: Plan as per above. (3) Chronic constipation Is this a current diagnosis for this admission?: Yes Plan: History of chronic constipation. Patient has history of hypothyroidism however states that she is compliant with levothyroxine. Patient is not taking any opiates. Home medications are Linzes. Encourage hydration and high-fiber diet. Will obtain TSH. Resume home meds. Outpatient PCP follow-up. (4) Osteoarthritis Qualifiers: Osteoarthritis location: multiple joints Osteoarthritis type: primary Qualified Code(s): M89.49 - Other hypertrophic osteoarthropathy, multiple sites Is this a current diagnosis for this admission?: Yes Plan: Extensive osteoarthritis of upper lower extremity. Patient routinely gets a steroid injection by orthopedic surgery. Continue supportive measures. Resume home meds. Outpatient PCP and Ortho follow-up. (5) Hypothyroidism Is this a current diagnosis for this admission?: Yes Plan: Resume home meds. Obtain TSH.
[2020-03-25] MEDS ORDERED: KETOROLAC TROMETHAMINE INJ/PF 30 MG/1 ML SDV IV PRN (14:08)
[2020-03-25] MEDS ORDERED: ONDANSETRON HCL INJ/PF 4 MG/2 ML SDV IV PRN (14:10)
[2020-03-25] MEDS ORDERED: HYDROXYZINE PAMOATE 25 MG CAPSULE PO PRN (14:14)
[2020-03-25] MEDS: PIPERACILLIN/TAZOBACTAM 3.375 GM VIAL IV SCH ×2 (15:07→21:16)
[2020-03-25] MEDS: DEXTROSE 5%-NORMAL SALINE 1,000 ML IV PRN ×2 (15:07→21:16)
--- NOTE | 2020-03-25 19:19 | EKG REPORT ---
SEVERITY:- OTHERWISE NORMAL ECG - SINUS RHYTHM BORDERLINE LEFT AXIS DEVIATION : Confirmed by: Castro Marsh 25-Mar-2020 19:19:15
[2020-03-25 21:20] VITALS: BP 141/52
[2020-03-25] MEDS ORDERED: PANTOPRAZOLE SODIUM 40 MG VIAL IV SCH (22:00)
[2020-03-25] MEDS ORDERED: GABAPENTIN 100 MG CAPSULE PO SCH (22:00)
[2020-03-26] MEDS ORDERED: FAMOTIDINE 20 MG TABLET PO SCH (10:00)
[2020-03-26] MEDS ORDERED: FLUTICASONE NASAL SPRAY 50 MCG/SPRY 120 SPRAY/16 GM NASL SCH (10:00)
== END 2020-03-25 21:20 | disposition short-term general hospital (02) ==
LOC: ER 10:21
DX: Z03.818 Encounter for observation for suspected exposure to other biological agents ruled out (principal); K83.09 Other cholangitis; K80.21 Calculus of gallbladder without cholecystitis with obstruction; R16.0 Hepatomegaly, not elsewhere classified; K59.00 Constipation, unspecified; L29.9 Pruritus, unspecified; R17 Unspecified jaundice; Z88.6 Allergy status to analgesic agent; Z88.5 Allergy status to narcotic agent; Z88.2 Allergy status to sulfonamides; Z79.899 Other long term (current) drug therapy
CPT/HCPCS: 93005; 96376; 99285; 96361; 96375; 96365; 36415; 82140; 83605; 83690; 84443; 80307; 85025; 80053; 81001; 71045; 76705; 93976; 74176; 93010; U0003; A9270 ×4; J1200 ×2; J7042; J7030 ×2; J2543 ×2; C9803; 87635